=== PATIENT | male | born 1980 | race Caucasian/White ===

== ENCOUNTER 2020-09-05 15:37 | Inpatient (IN) | payer MEDICAID, SELFPAY ==
--- NOTE | 2020-09-05 15:45 | DI.RAD_ITS ---
EXAM: XR ANKLE LT COMPLETE CLINICAL HISTORY: LLE cellulitis and Injury, R/O fracture SQ gas TECHNIQUE: COMPARISON: No exams were available for comparison FINDINGS: Three views were obtained. There are mild degenerative changes of the joints of the ankle. The ankl e mortise is well maintained. There is no evidence of acute fracture. No gas is identified in the s oft tissues although there is mild diffuse soft tissue swelling. IMPRESSION: RADIATION DOSE DELIVERED: Total DLP
[2020-09-05 15:48] VITALS: BP 151/77; PULSE 95; RESP 17; TEMP 37.4; O2SAT 100
--- NOTE | 2020-09-05 15:54 | ED.GENADUL_ITS ---
Discharge Plan Discharge Details Chief Complaint: Orthopedic Admit Date/Time: 09/05/20 19:11 Admit Provider: Amanda Cerda Attending Provider: Amanda Cerda Primary Care Provider: Zuly Mckinnon ED Provider: Dotty Wylie Discharge Data Discharge Date/Time-TO BE ENTERED AT DEPARTURE: 09/05/20 19:55 Medical Decision Making <Bren Wilson - Last Filed: 09/06/20 17:37> At this time work-up ordered including CBC, CMP, blood cultures x2, lactate, x- ray of the ankle to rule out fracture or subcutaneous IV clindamycin. I did discuss imaging and possibility for admission he verbalizes understanding at this time. Care is to be handed off to oncoming provider ANIYA Peterson pending imaging and labs and possible admission. Last Tdap was December 2011. Patient was hemodynamically stable and work-up is pending at the time of this dictation. <ANIYA Peterson - Last Filed: 09/05/20 20:40> This patient was signed out to me by Bren Mcclendon, nurse practitioner pending diagnostic blood work Patient meets sepsis criteria with significant cellulitis to his left lower extremity with a history of IV drug abuse He is started on clindamycin initially by my colleague, at the request of Dr. Cerda, hospitalist he was transitioned to ceftriaxone and vancomycin He will warrant admission to the hospital is agreeable to being admitted at this time Stable at time of admission X-ray of ankle does not show evidence soft tissue gas, I was asked by hospitalist to also order tib-fib, and this also does not show evidence of fracture, foreign body, or any obvious subcutaneous gas No crepitus on palpation, distal pulses intact HPI <Bren Wilson - Last Filed: 09/06/20 17:37> General Mode of arrival: wheelchair . Date/Time Provider Initiated Documentation: 09/05/20 15:45 . Limitations to Documentation: no limitations . Information obtained by: patient . HPI Narrative: 40-year-old male presents to the ER with chief complaint of left ankle injury and pain. Patient [place] when he got his foot caught on some rebar and tripped and fell falling forward. He states that he noticed pain getting worse today and redness getting worse today. On initial exam his ankle and lower extremity including the foot is 2+ pitting edema, warm to the touch, erythemic and appearing to be cellulitic. Patient is unsure of fever or chills. He denies any groin pain or popliteal knee. Erythema extends up to mid calf and go. He is unable to move his he does have a past medical history of depression anxiety, ADHD opioid dependent and mood disorder. He does take methadone daily and reports being noncompliant with Wellbutrin. No other medications prior to arrival Related Data Home Medications Medication Instructions Recorded Confirmed methadone 130 mg PO DAILY 11/11/17 01/04/19 omeprazole 20 mg capsule,delayed 20 mg PO DAILY PRN 01/04/19 09/06/20 release Allergies Allergy/AdvReac Type Severity Reaction Status Date / Time shellfish derived Allergy Mild Hives Unverified 09/05/20 15:53 Penicillins Allergy Hives Unverified 09/05/20 15:53 General Stated Complaint: Orthopedic AMARILYS: 3 Review of Systems <Brenkalia Copelandton - Last Filed: 09/06/20 17:37> All systems reviewed & are unremarkable except as noted in HPI and below Constitutional Constitutional: Reports as per HPI, Reports body ache(s) and Reports chills Cardiovascular Cardiovascular: Reports system reviewed and no additional complaints, except as documented and Denies chest pain Musculoskeletal Musculoskeletal: Reports as per HPI, Reports abnormal gait, Reports arthralgias, Reports joint swelling, Reports limited range of motion and Reports radiating pain into limb Neurologic Neurologic: Reports abnormal gait [facility] <Bren Wilson - Last Filed: 09/06/20 17:37> Medical History (Updated 09/06/20 @ 15:11 by Luma Motley NP) ADHD (attention deficit hyperactivity disorder) Depression GERD (gastroesophageal reflux disease) HPV (human papilloma virus) infection Mood disorder Opioid dependence Tobacco abuse Surgical History (Updated 09/06/20 @ 00:19 by Amanda Cerda MD) No pertinent past surgical history Family History (Updated 09/06/20 @ 00:20 by Amanda Cerda MD) Mother Colon cancer Social History (Updated 09/06/20 @ 00:23 by Amanda Cerda MD) Smoking/Tobacco Use Status: Current every day Tobacco Type: cigarettes Smoking packs per day: 1 Smoking cigarettes per day: 20.0 Years smoked: 25 Smoking pack- years: 25.00 Counseling given: provider counseling, support medications and counseling >3 minutes Smoking risk assessment performed?: Yes Alcohol Intake: current Alcohol type: other Drug use: Daily Substance use type: marijuana, crack/cocaine, amphetamines, tranquilizers, IV drugs and prescription drug Counseling given: Yes Counseling provided: provider counseling Do you feel safe in your relationship?: Yes Exam <Bren Wilson [facility] Filed: 09/06/20 17:37> Const General: comfortable and ill appearing Nutritional Appearance: thin Orientation: alert, awake and oriented x3 Chest Chest: normal inspection of the chest, no crepitus and no tenderness Resp Effort & Inspection: normal respiratory effort, able to speak in complete sentences, no cough and no respiratory distress Auscultation: clear to auscultation bilaterally Cardio Rate: regular rate Heart Sounds: S1 normal and S2 normal Extrem Left lower extremity: ankle Details: tenderness, swelling, pitting edema, abnormal ROM and warmth and foot Details: tenderness, warmth, edema and ecchymosis Upper/lower leg/hip images: 1. Erythema warmth edema Course <[facility] Filed: 09/06/20 17:37> Vital Signs Vital signs: Vital Signs Temperature 37.4 C 09/05/20 15:48 Pulse 95 H 09/05/20 15:48 Respiratory Rate 17 09/05/20 15:48 Blood Pressure 151/77 H 09/05/20 15:48 Pulse Oximetry 100 09/05/20 15:48 Temperature 37.4 C 09/05/20 15:48 Temperature Source Temporal Artery Scan 09/05/20 15:48 Pulse 95 H 09/05/20 15:48 Respiratory Rate 17 09/05/20 15:48 Respiratory Effort 09/05/20 15:51 Blood Pressure 151/77 H 09/05/20 15:48 Pulse Oximetry 100 09/05/20 15:48 Oxygen Delivery Method Room Air 09/05/20 15:48 Oxygen Flow Rate 0 09/05/20 15:48 Pain Level 7 09/05/20 15:48 Lab/Test Results Lab/Test Results: 09/05/20 15:50 Blood Blood Culture - Pending 09/05/20 15:50 Blood Blood Culture - Pending
[2020-09-05] MEDS: Normal Saline 1,000 ML 1000 ML IV (17:02)
--- NOTE | 2020-09-05 17:04 | NUR.NOTE ---
difficult IV start Nursing Note:
[2020-09-05 17:26] LABS: Absolute Basophil Count 0.03 10^3/uL (0.0-0.2); Absolute Monocyte Count 1.33 10^3/uL (0.1-0.8); Basophils % 0.2; Eosinophils % 1.9; HCT 37.1 % (40.0-50.0); HGB 12.5 g/dL (13.5-17.5); Immature Grans % 0.7; Lactate 1.9 mmol/L (0.6-1.4); Lymphocytes % 7.3; MCH 29.1 pg (27.0-33.0); MCHC 33.7 % (32.0-36.0); MCV 86.5 fL (80-95); MPV 10.9 fL (8.0-11.0); Monocytes % 9.2; Neutrophils % 80.7; Nucleated RBC 0 %; Platelet Count 217 10^3/uL (130-400); RBC 4.29 10^6/uL (4.36-5.78); RDW 12.4 % (11.8-14.1); RDW-SD 39.7 fL; WBC 14.43 10^3/uL (4.4-10.8)
[2020-09-05] MEDS: CLINDAMYCIN 600 MG/50 ML BAG 100 MG IVPB (17:27)
[2020-09-05 17:28] LABS: Absolute Eosinophil Count 0.27 10^3/uL (0.0-0.7); Absolute Lymphocyte Count 1.05 10^3/uL (1.2-3.4); Absolute Neutrophil Count 11.65 10^3/uL (1.2-6.7)
[2020-09-05 17:42] LABS: ALT 36 U/L (16-63); AST 34 U/L (15-37); Alkaline Phosphatase 92 U/L (46-116); BUN 9 mg/dL (7-18); Bilirubin, Total 0.5 mg/dL (0.2-1.0); Calcium 9.4 mg/dL (8.5-10.1); Chloride 99 mmol/L (98-107); Glucose 110 mg/dL (74-106); Magnesium 2.2 mg/dL (1.8-2.4); Potassium 3.4 mmol/L (3.5-5.1); Sodium 139 mmol/L (136-145); Total Protein 7.6 g/dL (6.4-8.2)
--- NOTE | 2020-09-05 18:15 | DI.VRAD_ITS ---
PROCEDURE INFORMATION: Exam: XR Left Ankle Exam date and time: 09/05/2020 6:04 PM Age: 40 years old Clinical indication: Injury or trauma; Other: Tangked in eyad wire; Blunt trauma; Ankle; Left TECHNIQUE: Imaging protocol: XR Left ankle. Views: 3 or more views. COMPARISON: No relevant prior studies available. FINDINGS: Bones/joints: There is posterior calcaneal enthesopathy. Soft tissues: There is mild lateral ankle swelling. IMPRESSION: 1. No acute fracture or dislocation. 2. Lateral ankle swelling, probable sprain. Dictated and Authenticated by: Jaron Blackwell MD. Ordering:GATO Correia MD
[2020-09-05 18:41] LABS: C-Reactive Protein > 25.00 mg/dL (0.0-0.3)
--- NOTE | 2020-09-05 18:45 | DI.RAD_ITS ---
EXAM: XR TIB/FIB LT CLINICAL HISTORY: cellulitis TECHNIQUE: COMPARISON: No exams were available for comparison FINDINGS: Two views were obtained. There is no evidence of acute fracture or dislocation. No gross erosive or destructive lesion seen. Please note that the distal most aspect of the tibia and fibula are not in cluded on the AP view. IMPRESSION: RADIATION DOSE DELIVERED: Total DLP
--- NOTE | 2020-09-05 19:24 | DI.VRAD_ITS ---
PROCEDURE INFORMATION: Exam: XR Left Tibia and Fibula Exam date and time: 09/05/2020 7:06 PM Age: 40 years old Clinical indication: Cellulitis; Lower leg; Left TECHNIQUE: Imaging protocol: XR Left tibia and fibula. Views: 2 views. COMPARISON: No relevant prior studies available. FINDINGS: Bones/joints: There is no acute fracture or dislocation. No periosteal reaction or erosive changes in the bones. Soft tissues: There is soft tissue swelling suspected in the lower leg. IMPRESSION: 1. No acute fracture or dislocation. 2. Mild soft tissue swelling in the lower leg. No abnormal periosteal reaction or erosive changes in tibia and fibula to suggest osteomyelitis. Dictated and Authenticated by: Jaron Blackwell MD. Ordering:TONYA Storm MD
[2020-09-05 20:05] VITALS: BP 128/79; PULSE 71; RESP 12; TEMP 37.3; O2SAT 99
[2020-09-05 20:10] LABS: Source Nasal/Nares
[2020-09-05 20:11] LABS: Procalcitonin 0.6 ng/mL
[2020-09-05 20:21] LABS: *AMPHETAMINES SCREEN URINE Positive (Negative); *BARBITURATES SCREEN URINE Negative (Negative); *BENZODIAZEPINES SCREEN URINE Negative (Negative); Cannabinoids THC Positive (Negative); Cocaine Screen,Urine Positive (Negative); METHADONE URINE SCREEN Positive (Negative); OPIATES URINE SCREEN Negative (Negative)
[2020-09-05 20:22] LABS: Tricyclic Antidepressants Negative (Negative)
[2020-09-05] MEDS: Acetaminophen 325 MG TAB 650 MG PO (21:07)
[2020-09-05] MEDS: Enoxaparin 40 MG/0.4 ML SYR SC (21:09)
[2020-09-05] MEDS: Potassium Chloride 20 MEQ TABCR 40 MEQ PO (21:09)
[2020-09-05] MEDS: Normal Saline Flush 10 ML SYR IVP ×2 (21:10→22:08)
[2020-09-05] MEDS: Normal Saline 1,000 ML 150 ML IV (22:10)
[2020-09-05] MEDS: cefTRIAXone 2 GM/50 ML BAG IVPB (22:53)
[2020-09-05 23:03] LABS: COVID-19 PCR Negative (Negative)
[2020-09-05 23:37] VITALS: BP 123/71; PULSE 71; RESP 18; TEMP 37; O2SAT 99
--- NOTE | 2020-09-05 23:43 | HPE_ITS ---
Date of service: 09/05/20 Time of Service: 23:44 Assessment and Plan Assessment and plan (1) Cellulitis of left leg: Status: Acute Assessment and plan: Specifically ankle. Await blood culture results. Continue vancomycn/zosyn empirically. Trend CRP/procalcitonin. Consider CT/MRI to r/o OM. No evidence of OM on XR, but this would be a late finding on XR. (The patient may have metal debris in one of his eyes per my chart review if MRI is being considered). IVF. Low threshold to consult orthopedics. (2) Hypokalemia: Status: Acute Assessment and plan: Replete and recheck in am. (3) Opioid dependence: Status: Chronic Assessment and plan: Pharmacy to verify dosing of methadone which we will continue while the patient is an in-patient. (4) IVDU (intravenous drug user): Status: Chronic Assessment and plan: Monitor for signs of w/d. Check HIV/Hepatitis serologies. (5) Polysubstance abuse: Status: Chronic Assessment and plan: As above Monitor on CIWA for alcohol dependence and provide vitamins. Provide nicotrol for nicotine dependence. (6) DVT prophylaxis: Status: Acute Assessment and plan: Sc lovenox (7) Discharge planning issues: Status: Acute Assessment and plan: Full code History of Present Illness History of Present Illness Chief Complaint: Left leg redness and swelling Narrative: Mr Kilpatrick is a 40 year old male with PMHx of IV drug use/multisubstance abuse, opioid dependence on methadone therapy, as well as h/o ADHD, anxiety, depression, and tobacco abuse, who presented to [facility] ED c/o L ankle pain after [place] by the river [place] days ago. The patient states that he had tripped on rebar and had fallen and that the ankle was exposed to river water. The patient also reports drug injection in that region over a week ago, but states it did not become red or swollen until the injury by the alexandro Appota. He denies fevers, chills, runny nose, sore throat, chest pain, shortness of breath, nausea, diarhea. He has a chronic smokers cough. He drinks 1-2 drinks/daily (twisted tea). In the ED, the patient was afebrile, had leucocytosis of 14 and had erythema to the degree that it was felt that he warranted inpatient admission. He was initiated on empiric clindamycin, then switched to vancomycin/zosyn due to h/o IVD use. Hospitalist admission was requested Review of Systems Narrative: The patient states he last drank today. Denies h/o w/d from EtOH. Denies seizures. States he smokes cocaine. About 1 week ago cocaine was injected into L ankle All systems reviewed & are unremarkable except as noted in HPI and below PFSH Medical History (Updated 09/06/20 @ 00:19 by Amanda Cerda MD) ADHD (attention deficit hyperactivity disorder) Depression GERD (gastroesophageal reflux disease) HPV (human papilloma virus) infection Mood disorder Opioid dependence Tobacco abuse Surgical History (Updated 09/06/20 @ 00:19 by Amanda Cerda MD) No pertinent past surgical history Family History (Updated 09/06/20 @ 00:20 by Amanda Cerda MD) Mother Colon cancer Social History (Updated 09/06/20 @ 00:23 by Amanda Cerda MD) Smoking/Tobacco Use Status: Current every day Tobacco Type: cigarettes Smoking packs per day: 1 Smoking cigarettes per day: 20.0 Years smoked: 25 Smoking pack- years: 25.00 Counseling given: provider counseling, support medications and counseling >3 minutes Smoking risk assessment performed?: Yes Alcohol Intake: current Alcohol type: other Drug use: Daily Substance use type: marijuana, crack/cocaine, amphetamines, tranquilizers, IV drugs and prescription drug Counseling given: Yes Counseling provided: provider counseling Do you feel safe in your relationship?: Yes Meds Allergies and Home Medications Allergies Allergy/AdvReac Type Severity Reaction Status Date / Time shellfish derived Allergy Mild Hives Unverified 09/05/20 15:53 Penicillins Allergy Hives Unverified 09/05/20 15:53 Home Medications Medication Instructions Recorded Confirmed Type methadone 130 mg PO DAILY 11/11/17 01/04/19 History omeprazole 20 mg capsule,delayed 20 mg PO DAILY 01/04/19 01/04/19 History release Exam Narrative Exam Narrative: General: Pleasant unkempt middle-aged male, cooperative, calm, does not appear to be withdrawing from any substance. Neurological: A&Ox3, no focal deficits Psychiatric: Appropriate speech pattern/content Skin: L ankle erythematous and swollen. No open wounds/abrasions. HEENT: Atraumatic, normocephalic, EOMI, MMM, clear oropharynx, no submandibular or cervical lymphadenopathy, no goiter or JVD Cardiovascular: RRR, no m/r/g Lungs: CTAB Gastrointestinal: soft, nontender, nondistended Genitourinary: deferred Extremities: No edema RLE; L ankle is swollen, erythematous, warm to touch. No areas of induration to suggest abscess. Results Imaging Additional studies: XR ankle L: 1. No acute fracture or dislocation. 2. Lateral ankle swelling, probable sprain. XR tib/fib L: 1. No acute fracture or dislocation. 2. Mild soft tissue swelling in the lower leg. No abnormal periosteal reaction or erosive changes in tibia and fibula to suggest osteomyelitis. Labs Result diagrams: 09/05/20 17:10 09/05/20 17:10 Labs: Laboratory Results - last 24 hr 09/05/20 09/05/20 09/05/20 17:10 17:10 17:10 WBC 14.43 H RBC 4.29 L Hgb 12.5 L Hct 37.1 L MCV 86.5 MCH 29.1 MCHC 33.7 RDW 12.4 Plt Count 217 MPV 10.9 Immature Gran % 0.7 Neutrophils % 80.7 Lymphocytes % 7.3 Monocytes % 9.2 Eosinophils % 1.9 Basophils % 0.2 Nucleated RBC % 0 Absolute Neutrophils 11.65 H Absolute Lymphocytes 1.05 L Absolute Monocytes 1.33 H Absolute Eosinophils 0.27 Absolute Basophils 0.03 VBG Lactate 1.9 H Sodium 139 Potassium 3.4 L Chloride 99 Carbon Dioxide 34.0 H Anion Gap 6.0 BUN 9 Creatinine 1.0 Estimated GFR/1.73 m2 >= 60.00 Glucose 110 H Calcium 9.4 Magnesium 2.2 Total Bilirubin 0.5 AST 34 ALT 36 Alkaline Phosphatase 92 C-Reactive Protein Total Protein 7.6 Albumin 3.0 L Procalcitonin 0.6 Urine Opiates Screen Urine Methadone Screen Ur Barbiturates Screen Ur Tricyclics Screen Ur Amphetamines Screen U Benzodiazepines Scrn Urine Cocaine Screen Ur THC Screen COVID-19 Source SARS-CoV-2 (PCR) 09/05/20 09/05/20 09/05/20 17:10 19:50 19:50 WBC RBC Hgb Hct MCV MCH MCHC RDW Plt Count MPV Immature Gran % Neutrophils % Lymphocytes % Monocytes % Eosinophils % Basophils % Nucleated RBC % Absolute Neutrophils Absolute Lymphocytes Absolute Monocytes Absolute Eosinophils Absolute Basophils VBG Lactate Sodium Potassium Chloride Carbon Dioxide Anion Gap BUN Creatinine Estimated GFR/1.73 m2 Glucose Calcium Magnesium Total Bilirubin AST ALT Alkaline Phosphatase C-Reactive Protein > 25.00 H Total Protein Albumin Procalcitonin Urine Opiates Screen Negative Urine Methadone Screen Positive A Ur Barbiturates Screen Negative Ur Tricyclics Screen Negative Ur Amphetamines Screen Positive A U Benzodiazepines Scrn Negative Urine Cocaine Screen Positive A Ur THC Screen Positive A COVID-19 Source Nasal/nares SARS-CoV-2 (PCR) Negative Last Vital Signs Temp 37 C 09/05/20 23:37 Pulse 71 09/05/20 23:37 Resp 18 09/05/20 23:37 BP 123/71 09/05/20 23:37 Pulse Ox 99 09/05/20 23:37 COVID-19 Screening Have you, or household traveled for leisure in last 14 days?: No Had IN PERSON contact w/suspected or confirmed C-19 person: No
[2020-09-05] MEDS: VANCOMYCIN 2,000 MG in Normal Saline 500 ML 250 MG IVPB (23:58)
[2020-09-06] MEDS: THIAMINE 100 MG in Normal Saline 100 ML 200 MG IVPB (02:29)
[2020-09-06 04:05] VITALS: BP 117/71; PULSE 72; RESP 16; TEMP 37; O2SAT 99
[2020-09-06 07:24] VITALS: BP 105/63; PULSE 87; RESP 18; TEMP 37.9; O2SAT 98
[2020-09-06 07:48] LABS: Lactate 1.5 mmol/L (0.6-1.4)
[2020-09-06] MEDS: Multivitamin TAB 1 TAB PO (07:49)
[2020-09-06] MEDS: Thiamine 100 MG TAB PO (07:49)
[2020-09-06] MEDS: Acetaminophen 325 MG TAB 650 MG PO ×2 (07:49→23:58)
[2020-09-06] MEDS: Folic Acid 1 MG TAB PO (07:49)
[2020-09-06] MEDS: Normal Saline 1,000 ML 150 ML IV (07:51)
[2020-09-06 08:05] LABS: Abs Immature Grans 0.04 10^3/uL (0.0-0.06); Absolute Basophil Count 0.03 10^3/uL (0.0-0.2); Absolute Eosinophil Count 0.41 10^3/uL (0.0-0.7); Absolute Monocyte Count 1.04 10^3/uL (0.1-0.8); Basophils % 0.3; Eosinophils % 3.7; HGB 11.7 g/dL (13.5-17.5); Immature Grans % 0.4; Lymphocytes % 9.8; MCH 28.2 pg (27.0-33.0); MCHC 32.5 % (32.0-36.0); MCV 86.7 fL (80-95); MPV 11.4 fL (8.0-11.0); Monocytes % 9.3; Neutrophils % 76.5; Nucleated RBC 0 %; Platelet Count 181 10^3/uL (130-400); RBC 4.15 10^6/uL (4.36-5.78); RDW 12.8 % (11.8-14.1); RDW-SD 40.4 fL; WBC 11.18 10^3/uL (4.4-10.8)
[2020-09-06 08:08] LABS: Anion Gap 9.1 mmol/L (3-11); BUN 6 mg/dL (7-18); CO2 26.9 mmol/L (21.0-32.0); CREATININE 0.8 mg/dL (0.70-1.30); Calcium 8.6 mg/dL (8.5-10.1); Chloride 103 mmol/L (98-107); Creatine Kinase 152 U/L (39-308); Glucose 112 mg/dL (74-106); Potassium 3.8 mmol/L (3.5-5.1); Sodium 139 mmol/L (136-145)
[2020-09-06 08:13] LABS: Absolute Neutrophil Count 8.55 10^3/uL (1.2-6.7)
[2020-09-06 08:23] LABS: C-Reactive Protein > 25.00 mg/dL (0.0-0.3)
[2020-09-06] MEDS: Methadone Liquid 10 MG/ML 130 MG PO (09:28)
[2020-09-06] MEDS: VANCOMYCIN/WATER (PEG) 1.5 GM/300 ML BAG IV ×2 (10:22→18:00)
--- NOTE | 2020-09-06 11:04 | PDOC.CMIN ---
- If Service Date Differs Date of service: 09/06/20 Time of Service: 11:04 Care Management Initial Assess REASON FOR HOSPITALIZATION:: Cellulitis of left leg PAST MEDICAL HISTORY/PAST SURGICAL HISTORY:: Medical History (Updated 09/06/20 @ 00:19 by Amanda Cerda MD). ADHD (attention deficit hyperactivity disorder). Depression. GERD (gastroesophageal reflux disease). HPV (human papilloma virus) infection. Mood disorder. Opioid dependence. Tobacco abuse. Surgical History (Updated 09/06/20 @ 00:19 by Amanda Cerda MD). No pertinent past surgical history PREVIOUS FUNCTIONAL STATUS/SOCIAL/FAMILY SUPPORTS:: Ritesh lives in a condominium with his brother in [place], [place]. He and his brother own the condo; it was left to them by their mother. Ritesh is independent with care and activities and does not receive any services, although he does attend [facility] for substance use treatment. Mike is not currently working and does receive unemployment benefits. CURRENT FUNCTIONAL STATUS:: Ritesh was sitting up in bed when CM met with him. He was pleasant and engaged readily with CM, answering questions freely. Ritesh stated that he does not feel that his leg is any better since coming to the hospital but understands that it will take time. He talked a bit about his living arrrangements and shared that his current girlfriend has been staying with him for a while. He describes their relationship as not very healthy and temporary. Heinformed Cm that he hopes not to be in the hospital too long, but did bring his Ipad to help to occupy his time. ADVANCE DIRECTIVES:: none on file - provided with a copy of the [place] AD forms Has patient been provided with info about the portal/API?: Yes Did the patient sign up for the portal?: No CODE STATUS:: Full Code INSURANCE COVERAGE / FINANCIAL ISSUES:: Medicaid CURRENT HOME/COMMUNITY SERVICES/EQUIPMENT:: Attends [facility] PRIMARY CARE PHYSICIAN:: Zuly Mckinnon POTENTIAL DISCHARGE NEEDS:: Follow up with PCP and plan of care PATIENT/FAMILY EDUCATION NEEDS:: Review of discharge instructions, medications, activity, limitations, Ask Me Three, follow up appointments TRANSPORTATION:: via private vehicle with family/friend PLAN:: Ritesh will gunnerley be discharged home with no new services. He will follow up with his PCP and plan of care and transport with family. CM will continue to support Ritesh and his discharge planning needs.
[2020-09-06 11:37] VITALS: BP 129/66; PULSE 69; RESP 20; TEMP 36.8; O2SAT 97
--- NOTE | 2020-09-06 15:03 | W.PM.PROGNOT ---
Date of Service Date of service: 09/06/20 Time of Service: 10:30 Assessment and Plan Assessment and plan (1) Cellulitis of left leg: Start date: 09/06/20 Start time: 10:30 Status: Acute Assessment and plan: L ankle . Blood cultures pending Continue vancomycn/zosyn empirically until blood cultures result CRP greater than 25, procal 0.6 Xray results : Mild soft tissue swelling in the lower leg. No abnormal periosteal reaction or erosive changes in tibia and fibula to suggest osteomyelitis. at this time CT no warranted, if does not approve consider CT D/c IVF (2) Hypokalemia: Start date: 09/06/20 Start time: 10:30 Status: Resolved Assessment and plan: Resolved with supplementation (3) Opioid dependence: Start date: 09/06/20 Start time: 15:11 Status: Chronic Assessment and plan: Pharmacy to verify dosing of methadone which we will continue while the patient is an in-patient. Unable to verify until Monday (4) IVDU (intravenous drug user): Start date: 09/06/20 Start time: 15:12 Status: Chronic Assessment and plan: Monitor for signs of w/d. no signs at this time Check HIV/Hepatitis serologies. UDS positive with multiple substances (5) Polysubstance abuse: Start date: 09/06/20 Start time: 15:12 Status: Chronic Assessment and plan: As above Monitor on CIWA for alcohol dependence and provide vitamins. Provide nicotrol for nicotine dependence. (6) DVT prophylaxis: Start date: 09/06/20 Start time: 15:12 Status: Acute Assessment and plan: Sc lovenox (7) Discharge planning issues: Start date: 09/06/20 Start time: 15:12 Status: Acute Assessment and plan: Full code above case discussed with Dr. George Subjective Subjective Patient reports: no new complaints Interval history since last seen: No improvement per patient. No markings on cellulitis. Markings made by this provider. However it has not even been 24 hours on antbx. He denies Pain. Will continue to monitor. Exam Narrative Exam Narrative: General: Pleasant unkempt middle-aged male, cooperative, calm, does not appear to be withdrawing from any substance laying in bed. Neurological: A&Ox3, no focal deficits Psychiatric: Appropriate speech pattern/content Skin: L ankle erythematous and swollen. No open wounds/abrasions. small pen point scab to inner ankle HEENT: Atraumatic, normocephalic, EOMI, MMM, clear oropharynx, no submandibular or cervical lymphadenopathy, no goiter or JVD Cardiovascular: RRR, no m/r/g Lungs: CTAB Gastrointestinal: soft, nontender, nondistended, BS x 4 Extremities: No edema RLE; L ankle is swollen, erythematous, warm to touch. No areas of induration to suggest abscess. Objective Last Vital Signs Temp 36.8 C 09/06/20 11:37 Pulse 69 09/06/20 11:37 Resp 20 09/06/20 11:37 BP 129/66 09/06/20 11:37 Pulse Ox 97 09/06/20 11:37 Laboratory Results - last 24 hr 09/05/20 09/05/20 09/05/20 17:10 17:10 17:10 WBC 14.43 H RBC 4.29 L Hgb 12.5 L Hct 37.1 L MCV 86.5 MCH 29.1 MCHC 33.7 RDW 12.4 Plt Count 217 MPV 10.9 Immature Gran % 0.7 Neutrophils % 80.7 Lymphocytes % 7.3 Monocytes % 9.2 Eosinophils % 1.9 Basophils % 0.2 Nucleated RBC % 0 Absolute Neutrophils 11.65 H Absolute Lymphocytes 1.05 L Absolute Monocytes 1.33 H Absolute Eosinophils 0.27 Absolute Basophils 0.03 VBG Lactate 1.9 H Sodium 139 Potassium 3.4 L Chloride 99 Carbon Dioxide 34.0 H Anion Gap 6.0 BUN 9 Creatinine 1.0 Estimated GFR/1.73 m2 >= 60.00 Glucose 110 H Calcium 9.4 Magnesium 2.2 Total Bilirubin 0.5 AST 34 ALT 36 Alkaline Phosphatase 92 Creatine Kinase C-Reactive Protein Total Protein 7.6 Albumin 3.0 L Procalcitonin 0.6 Urine Opiates Screen Urine Methadone Screen Ur Barbiturates Screen Ur Tricyclics Screen Ur Amphetamines Screen U Benzodiazepines Scrn Urine Cocaine Screen Ur THC Screen COVID-19 Source SARS-CoV-2 (PCR) 09/05/20 09/05/20 09/05/20 17:10 19:50 19:50 WBC RBC Hgb Hct MCV MCH MCHC RDW Plt Count MPV Immature Gran % Neutrophils % Lymphocytes % Monocytes % Eosinophils % Basophils % Nucleated RBC % Absolute Neutrophils Absolute Lymphocytes Absolute Monocytes Absolute Eosinophils Absolute Basophils VBG Lactate Sodium Potassium Chloride Carbon Dioxide Anion Gap BUN Creatinine Estimated GFR/1.73 m2 Glucose Calcium Magnesium Total Bilirubin AST ALT Alkaline Phosphatase Creatine Kinase C-Reactive Protein > 25.00 H Total Protein Albumin Procalcitonin Urine Opiates Screen Negative Urine Methadone Screen Positive A Ur Barbiturates Screen Negative Ur Tricyclics Screen Negative Ur Amphetamines Screen Positive A U Benzodiazepines Scrn Negative Urine Cocaine Screen Positive A Ur THC Screen Positive A COVID-19 Source Nasal/nares SARS-CoV-2 (PCR) Negative 09/06/20 09/06/20 09/06/20 07:41 07:41 07:41 WBC 11.18 H RBC 4.15 L Hgb 11.7 L Hct 36.0 L MCV 86.7 MCH 28.2 MCHC 32.5 RDW 12.8 Plt Count 181 MPV 11.4 H Immature Gran % 0.4 Neutrophils % 76.5 Lymphocytes % 9.8 Monocytes % 9.3 Eosinophils % 3.7 Basophils % 0.3 Nucleated RBC % 0 Absolute Neutrophils 8.55 H Absolute Lymphocytes 1.10 L Absolute Monocytes 1.04 H Absolute Eosinophils 0.41 Absolute Basophils 0.03 VBG Lactate 1.5 H Sodium 139 Potassium 3.8 Chloride 103 Carbon Dioxide 26.9 Anion Gap 9.1 BUN 6 L Creatinine 0.8 Estimated GFR/1.73 m2 >= 60.00 Glucose 112 H Calcium 8.6 Magnesium 2.0 Total Bilirubin AST ALT Alkaline Phosphatase Creatine Kinase 152 C-Reactive Protein > 25.00 H Total Protein Albumin Procalcitonin Urine Opiates Screen Urine Methadone Screen Ur Barbiturates Screen Ur Tricyclics Screen Ur Amphetamines Screen U Benzodiazepines Scrn Urine Cocaine Screen Ur THC Screen COVID-19 Source SARS-CoV-2 (PCR)
[2020-09-06 15:32] VITALS: BP 124/79; PULSE 79; RESP 18; TEMP 37.5; O2SAT 97
[2020-09-06] MEDS: Normal Saline 500 ML 30 ML IV (18:01)
[2020-09-06] MEDS: Enoxaparin 40 MG/0.4 ML SYR SC (19:45)
[2020-09-06 20:03] VITALS: BP 134/74; PULSE 69; RESP 20; TEMP 36.7; O2SAT 97
[2020-09-06] MEDS: cefTRIAXone 2 GM/50 ML BAG IVPB (21:54)
[2020-09-06 23:58] VITALS: TEMP 37.5
[2020-09-07] VITALS (8 sets, daily range): BP systolic 110–129; BP diastolic 70–82; PULSE 64–77; RESP 16–18; TEMP 36.3–38.2; O2SAT 94–100
[2020-09-07] MEDS: VANCOMYCIN/WATER (PEG) 1.5 GM/300 ML BAG IV ×3 (02:06→18:26)
[2020-09-07] MEDS: Folic Acid 1 MG TAB PO (08:23)
[2020-09-07] MEDS: Multivitamin TAB 1 TAB PO (08:23)
[2020-09-07] MEDS: Methadone Liquid 10 MG/ML 135 MG PO (08:24)
[2020-09-07] MEDS: Thiamine 100 MG TAB PO (08:24)
[2020-09-07 09:37] LABS: Vancomycin, Trough 14.7 ug/mL (10.0-20.0)
[2020-09-07 09:47] LABS: Abs Immature Grans 0.08 10^3/uL (0.0-0.06); Absolute Basophil Count 0.03 10^3/uL (0.0-0.2); Absolute Eosinophil Count 0.38 10^3/uL (0.0-0.7); Absolute Lymphocyte Count 0.98 10^3/uL (1.2-3.4); Absolute Monocyte Count 0.67 10^3/uL (0.1-0.8); Absolute Neutrophil Count 8.38 10^3/uL (1.2-6.7); Basophils % 0.3; Eosinophils % 3.6; HCT 34.4 % (40.0-50.0); HGB 11.1 g/dL (13.5-17.5); Immature Grans % 0.8; Lymphocytes % 9.3; MCH 28.5 pg (27.0-33.0); MCHC 32.3 % (32.0-36.0); MCV 88.4 fL (80-95); MPV 10.6 fL (8.0-11.0); Monocytes % 6.4; Neutrophils % 79.6; Nucleated RBC 0 %; Platelet Count 230 10^3/uL (130-400); RBC 3.89 10^6/uL (4.36-5.78); RDW 13.1 % (11.8-14.1); RDW-SD 42.5 fL; WBC 10.52 10^3/uL (4.4-10.8)
--- NOTE | 2020-09-07 10:32 | W.NUTRFU ---
Date of service: 09/07/20 Time of Service: 10:32 Nutritional Follow up NOTE: 40 year old male admitted with cellulitis of left leg with long standing hx of poly substance abuse. Supplemented with MVI, thiamin and folic acid. Currently meeting nutrient and fluid needs by regular diet. Not at nutritional risk at this time. Time Spent in Nutritional Counseling and Treatment: 0
--- NOTE | 2020-09-07 10:42 | CMPROGNOTE_ITS ---
Care Management Progress Note S/O: Carl continues to be treated empirically while awaiting culture results and [facility] ID consult. CM continues to follow. A: 40 year old male admitted to [facility] 09/05/20 for Sepsis due to LLE cellulitis in setting of IVD use. P: Ritesh will likely be discharged home with no new services, anticipate he will need a last dose letter for [facility] resumption. He will follow up with his PCP and plan of care and transport with family. CM will continue to support Ritesh and his discharge planning needs.
[2020-09-07 10:59] LABS: HIV-1/2 Ag & Ab Screen Negative (Negative)
[2020-09-07 11:20] LABS: HBs Antibody, Qual Negative (See Note); HBs Antibody, Quant <3.1 mIU/mL (See Note); Hepatitis B Core Antibody Positive (Negative); Hepatitis B surface Ag Negative (Negative); Hepatitis C Ab w Rflx HCV PCR Reactive (Negative)
--- NOTE | 2020-09-07 11:31 | W.PM.PROGNOT ---
Date of Service Date of service: 09/07/20 Time of Service: 11:37 Assessment and Plan Assessment and plan (1) Cellulitis of left leg: Start date: 09/07/20 Start time: 11:41 Status: Acute Assessment and plan: L ankle . Blood cultures pending Continue vancomycn/zosyn empirically until blood cultures result CRP greater than 25, procal 0.6 Xray results : Mild soft tissue swelling in the lower leg. No abnormal periosteal reaction or erosive changes in tibia and fibula to suggest osteomyelitis. at this time CT no warranted, if does not approve consider CT D/c IVF (2) Opioid dependence: Start date: 09/07/20 Start time: 11:41 Status: Chronic Assessment and plan: Methadone verified he takes 135 daily ordered and will continue (3) IVDU (intravenous drug user): Start date: 09/07/20 Start time: 11:42 Status: Chronic Assessment and plan: He states he has never gone through withdrawal for opioids continue methadone as above CIWA protocol discontinued, he only drinks 1-2 beers a couple times a week (4) Polysubstance abuse: Start date: 09/07/20 Start time: 11:43 Status: Chronic Assessment and plan: As above Provide nicotrol for nicotine dependence. (5) DVT prophylaxis: Start date: 09/07/20 Start time: 11:43 Status: Acute Assessment and plan: Sc lovenox (6) Discharge planning issues: Start date: 09/07/20 Start time: 11:43 Status: Acute Assessment and plan: Full code above case discussed with Dr. George Subjective Subjective Patient reports: no new complaints Interval history since last seen: Erythema improving. CIWA 0 he states he only drinks 1-2 beers a couple days a week and he has never gone through withdrawal from not using drugs, he is also on methadone. Will discontinue Alcohol withdrawal protocol. He denies CP, SOB, N/V/D. Exam Narrative Exam Narrative: General: Pleasant unkempt middle-aged male, cooperative, calm, does not appear to be withdrawing from any substance sitting up in chair. Neurological: A&Ox3, no focal deficits Psychiatric: Appropriate speech pattern/content Skin: L ankle erythematous and swollen though improving, receding from lines on inner aspect of the ankle. No open wounds/abrasions. small pen point scab to inner ankle HEENT: Atraumatic, normocephalic, EOMI, MMM, clear oropharynx, no submandibular or cervical lymphadenopathy, no goiter or JVD Cardiovascular: RRR, no m/r/g Lungs: CTAB Gastrointestinal: soft, nontender, nondistended, BS x 4 Objective Last Vital Signs Temp 37 C 09/07/20 11:25 Pulse 66 09/07/20 11:25 Resp 16 09/07/20 11:25 BP 126/82 09/07/20 11:25 Pulse Ox 97 09/07/20 11:25 Laboratory Results - last 24 hr 09/06/20 09/07/20 09/07/20 08:05 09:00 09:27 WBC 10.52 RBC 3.89 L Hgb 11.1 L Hct 34.4 L MCV 88.4 MCH 28.5 MCHC 32.3 RDW 13.1 Plt Count 230 MPV 10.6 Immature Gran % 0.8 Neutrophils % 79.6 Lymphocytes % 9.3 Monocytes % 6.4 Eosinophils % 3.6 Basophils % 0.3 Nucleated RBC % 0 Absolute Neutrophils 8.38 H Absolute Lymphocytes 0.98 L Absolute Monocytes 0.67 Absolute Eosinophils 0.38 Absolute Basophils 0.03 Vancomycin Trough 14.7 HIV 1&2 Ag/Ab, 4th Gen Negative
--- NOTE | 2020-09-07 14:05 | CHAPLAIN ---
Carl was resting in the recliner when I stopped in. He showed me his foot that is swollen and red. He said he's basically trying to sleep away his time here. I explained my role and offered support.
[2020-09-07] MEDS: Normal Saline 500 ML 30 ML IV (16:05)
[2020-09-07] MEDS: Docusate Sodium 100 MG CAP PO (18:41)
[2020-09-07] MEDS: Enoxaparin 40 MG/0.4 ML SYR SC (19:43)
[2020-09-07] MEDS: cefTRIAXone 2 GM/50 ML BAG IVPB (22:40)
[2020-09-08] MEDS: VANCOMYCIN/WATER (PEG) 1.5 GM/300 ML BAG IV ×2 (02:40→10:10)
[2020-09-08 03:25] VITALS: BP 112/71; PULSE 60; RESP 16; TEMP 37; O2SAT 97
[2020-09-08 07:29] VITALS: BP 118/79; PULSE 62; RESP 16; TEMP 36.7; O2SAT 98
[2020-09-08 07:44] LABS: HCT 35.8 % (40.0-50.0); HGB 11.5 g/dL (13.5-17.5); MCH 28.4 pg (27.0-33.0); MCHC 32.1 % (32.0-36.0); MCV 88.4 fL (80-95); MPV 10.3 fL (8.0-11.0); Platelet Count 287 10^3/uL (130-400); RBC 4.05 10^6/uL (4.36-5.78); RDW 13.1 % (11.8-14.1); RDW-SD 42.9 fL; WBC 10.09 10^3/uL (4.4-10.8)
[2020-09-08] MEDS: Normal Saline Flush 10 ML SYR IVP ×3 (07:47→19:53)
[2020-09-08] MEDS: Methadone Liquid 10 MG/ML 135 MG PO (08:14)
--- NOTE | 2020-09-08 08:43 | W.PM.PROGNOT ---
Date of Service Date of service: 09/08/20 Time of Service: 08:44 Assessment and Plan Assessment and plan (1) Cellulitis of left leg: Status: Acute Assessment and plan: worsening erythema. Blood cultures pending but negative to date Was on vancomycn/zosyn empirically until blood cultures resulted but failing clinically so will change to meropenem day 1. CRP greater than 25, procal 0.6 Xray results : Mild soft tissue swelling in the lower leg. No abnormal periosteal reaction or erosive changes in tibia and fibula to suggest osteomyelitis. at this time CT no warranted, if does not improve consider CT (2) Opioid dependence: Status: Chronic Assessment and plan: Methadone verified he takes 135 mg daily ordered and will continue (3) IVDU (intravenous drug user): Status: Chronic Assessment and plan: He states he has never gone through withdrawal for opioids continue methadone as above CIWA protocol discontinued, he only drinks 1-2 beers a couple times a week (4) Polysubstance abuse: Status: Chronic Assessment and plan: As above Provide nicotrol for nicotine dependence. will add nicotine patch (5) DVT prophylaxis: Status: Acute Assessment and plan: Sc lovenox (6) Discharge planning issues: Status: Acute Assessment and plan: Full code above case discussed with Dr. George Exam Narrative Exam Narrative: General: Pleasant unkempt middle-aged male, cooperative, calm, mildly fidgety/twitchy but in no distress. Neurological: A&Ox3, no focal deficits Psychiatric: Appropriate speech pattern/content Skin: L ankle erythematous and swollen significantly extending proximally beyond the lines marked. No open wounds/abrasions. small pen point scab to inner ankle HEENT: Atraumatic, normocephalic, EOMI, MMM, clear oropharynx, no submandibular or cervical lymphadenopathy, no goiter or JVD Cardiovascular: RRR, no m/r/g Lungs: CTAB Gastrointestinal: soft, nontender, nondistended, BS x 4 Objective Last Vital Signs Temp 36.7 C 09/08/20 07:29 Pulse 62 09/08/20 07:29 Resp 16 09/08/20 07:29 BP 118/79 09/08/20 07:29 Pulse Ox 98 09/08/20 07:29 Laboratory Results - last 24 hr 09/06/20 09/06/20 09/07/20 08:05 08:05 09:00 WBC RBC Hgb Hct MCV MCH MCHC RDW Plt Count MPV Immature Gran % Neutrophils % Lymphocytes % Monocytes % Eosinophils % Basophils % Nucleated RBC % Absolute Neutrophils Absolute Lymphocytes Absolute Monocytes Absolute Eosinophils Absolute Basophils Vancomycin Trough 14.7 Hep Bs Antigen Negative Hep Bs Antibody Negative Hep Bs Antibody, Quant <3.1 Hep B Core Total Ab Positive A Hepatitis C Antibody Reactive A HIV 1&2 Ag/Ab, 4th Gen Negative 09/07/20 09/08/20 09:27 07:35 WBC 10.52 10.09 RBC 3.89 L 4.05 L Hgb 11.1 L 11.5 L Hct 34.4 L 35.8 L MCV 88.4 88.4 MCH 28.5 28.4 MCHC 32.3 32.1 RDW 13.1 13.1 Plt Count 230 287 MPV 10.6 10.3 Immature Gran % 0.8 Neutrophils % 79.6 Lymphocytes % 9.3 Monocytes % 6.4 Eosinophils % 3.6 Basophils % 0.3 Nucleated RBC % 0 Absolute Neutrophils 8.38 H Absolute Lymphocytes 0.98 L Absolute Monocytes 0.67 Absolute Eosinophils 0.38 Absolute Basophils 0.03 Vancomycin Trough Hep Bs Antigen Hep Bs Antibody Hep Bs Antibody, Quant Hep B Core Total Ab Hepatitis C Antibody HIV 1&2 Ag/Ab, 4th Gen
--- NOTE | 2020-09-08 09:47 | PDOC.CMPRO ---
Care Management Progress Note S/O: Carl continues to be treated empirically while awaiting culture results and [facility] consult. Per provider, due to worsening clinically, IV ABX vanco/zosyn discontinued and changed to IV meropenem today. He remains on Methadone 135mg daily for opioid dependence. CM continues to follow. A: 40 year old male admitted to [facility] 09/05/20 for Sepsis due to LLE cellulitis in setting of IVD use. P: Ritesh will likely be discharged home with no new services, anticipate he will need a last dose letter for [facility] resumption. He will follow up with his PCP and plan of care and transport with family. CM will continue to support Ritesh and his discharge planning needs.
[2020-09-08] MEDS: Acetaminophen 325 MG TAB 650 MG PO (10:10)
[2020-09-08 11:46] VITALS: BP 125/79; PULSE 62; RESP 16; TEMP 36.5; O2SAT 96
--- NOTE | 2020-09-08 12:06 | PHA.REVIEW ---
Pharmacy Admission Review - Admission Clinical Review (Last Updated 09/06/20 @ 00:19 by Amanda Cerda MD) Discharge planning issues (Acute) DVT prophylaxis (Acute) Cellulitis of left leg (Acute) shellfish derived Allergy (Mild, Unverified 09/05/20 15:53) Hives Penicillins Allergy (Unverified 09/05/20 15:53) Hives Height 6 ft Weight 94.6 kg - Renal Dosing Renal Dosing: BUN 6 mg/dL (7-18) L 09/06/20 07:41 Creatinine 0.8 mg/dL (0.70-1.30) 09/06/20 07:41 Medications needing adjustments: Reviewed (Crcl ~133 mL/min current meds okay) - Anticoagulation Anticoagulation: Hgb 11.5 g/dL (13.5-17.5) L 09/08/20 07:35 Hct 35.8 % (40.0-50.0) L 09/08/20 07:35 Plt Count 287 10^3/uL (130-400) 09/08/20 07:35 Creatinine 0.8 mg/dL (0.70-1.30) 09/06/20 07:41 DVT Prohphylaxis: Reviewed Medications: Enoxaparin Therapeutic Anticoagulation: N/A - Opiate Usage Evaluate Pain Scale/Pains Meds: Reviewed Scheduled Bowel Reg ordered if on Opiates?: No (has prn docusate ordered) - Relevant Labs Sodium 139 mmol/L (136-145) 09/06/20 07:41 Potassium 3.8 mmol/L (3.5-5.1) 09/06/20 07:41 Chloride 103 mmol/L (98-107) 09/06/20 07:41 Magnesium 2.0 mg/dL (1.8-2.4) 09/06/20 07:41 C-Reactive Protein > 25.00 mg/dL (0.0-0.3) H 09/06/20 07:41 Electrolytes, C-Reactive P, ESR: Reviewed - DM Control DM Control: Glucose 112 mg/dL (74-106) H 09/06/20 07:41 Insulin Dosing: N/A - Heart Failure/AR EF%, ARNULFO's, B-Blockers, Diuretics: N/A - BP Control BP Control: Blood Pressure 125/79 Blood Pressure 118/79 Blood Pressure 112/71 If elevated: N/A - Qtc Review If Elevated: N/A - IV to PO Switch IV Medications: Reviewed - Home Meds Home Med List reviewed: Reviewed (methadone dose verified with BAART) Relevent Home Meds Not ordered & why?: Both home meds are ordered. - Current meds Current Medication Order Review: Reviewed - Comments Comments/Follow Ups: Watch VS, labs, for culture results and for med changes (possible need of additional BM meds). Antibiotic Activity - Pharmacy Antibiotic Review Pharmacy Antibiotic Activity: Abx regimen adjustment (Redness migrated outside of the margins per nursing report. Vanco and ceftriaxone discontinued, meropenem started. BC no growth @48hrs.)
[2020-09-08] MEDS: MEROPENEM 1 GM in Normal Saline 100 ML IVPB ×2 (12:23→19:53)
[2020-09-08] MEDS: Nicotine 21 MG/24 HR PATCH TD (14:04)
[2020-09-08 15:13] VITALS: BP 143/81; PULSE 78; RESP 18; TEMP 35.4; O2SAT 99
[2020-09-08 19:20] VITALS: BP 123/83; PULSE 75; RESP 17; TEMP 36.1; O2SAT 99
[2020-09-08] MEDS: Enoxaparin 40 MG/0.4 ML SYR SC (19:53)
[2020-09-08] MEDS: Docusate Sodium 100 MG CAP PO (21:32)
[2020-09-08 23:42] VITALS: BP 130/76; PULSE 58; RESP 17; TEMP 36.6; O2SAT 97
[2020-09-09] VITALS (7 sets, daily range): BP systolic 108–137; BP diastolic 65–92; PULSE 55–106; RESP 16–20; TEMP 35.9–36.9; O2SAT 97–100
[2020-09-09] MEDS: Normal Saline Flush 10 ML SYR IVP ×2 (02:46→20:29)
[2020-09-09] MEDS: Normal Saline 1,000 ML 30 ML IV (02:46)
[2020-09-09] MEDS: MEROPENEM 1 GM in Normal Saline 100 ML IVPB ×3 (04:37→20:30)
[2020-09-09 07:47] LABS: Abs Immature Grans 0.41 10^3/uL (0.0-0.06); HCT 39.6 % (40.0-50.0); HGB 12.8 g/dL (13.5-17.5); MCH 28.1 pg (27.0-33.0); MCHC 32.3 % (32.0-36.0); MCV 86.8 fL (80-95); MPV 10.3 fL (8.0-11.0); Nucleated RBC 0 %; Platelet Count 370 10^3/uL (130-400); RBC 4.56 10^6/uL (4.36-5.78); RDW 13.2 % (11.8-14.1); RDW-SD 41.6 fL; WBC 8.93 10^3/uL (4.4-10.8)
[2020-09-09 07:54] LABS: ALT 100 U/L (16-63); AST 61 U/L (15-37); Albumin 2.7 g/dL (3.4-5.0); Alkaline Phosphatase 117 U/L (46-116); Anion Gap 5.3 mmol/L (3-11); BUN 12 mg/dL (7-18); Bilirubin, Total 0.3 mg/dL (0.2-1.0); C-Reactive Protein 15.11 mg/dL (0.0-0.3); CO2 32.7 mmol/L (21.0-32.0); Calcium 9.7 mg/dL (8.5-10.1); Chloride 103 mmol/L (98-107); Glucose 87 mg/dL (74-106); Potassium 4.3 mmol/L (3.5-5.1); Sodium 141 mmol/L (136-145); Total Protein 8.3 g/dL (6.4-8.2)
[2020-09-09] MEDS: Nicotine 21 MG/24 HR PATCH TD (08:08)
[2020-09-09] MEDS: Methadone Liquid 10 MG/ML 135 MG PO (08:09)
[2020-09-09 08:46] LABS: Absolute Eosinophil Count 0.36 10^3/uL (0.0-0.7); Absolute Lymphocyte Count 2.32 10^3/uL (1.2-3.4); Absolute Monocyte Count 0.54 10^3/uL (0.1-0.8); Absolute Neutrophil Count 5.45 10^3/uL (1.2-6.7); Atypical Lymphocytes % 2
[2020-09-09 08:47] LABS: Diff Comment Manual Differential; Myelocytes % 3; Polychromasia Present
--- NOTE | 2020-09-09 09:41 | W.PM.PROGNOT ---
Date of Service Date of service: 09/09/20 Time of Service: 09:41 Assessment and Plan Assessment and plan (1) Cellulitis of left leg: Status: Acute Assessment and plan: worsening erythema yesterday so started on meropenem day 2 Blood cultures negative to date Was on vancomycn/zosyn empirically until 09/08 when appeared to be failing clinically so was change to meropenem. CRP now down to 15 from 25, procal 0.6 Xray results : Mild soft tissue swelling in the lower leg. No abnormal periosteal reaction or erosive changes in tibia and fibula to suggest osteomyelitis. at this time CT no warranted, if does not improve consider CT (2) Opioid dependence: Status: Chronic Assessment and plan: Methadone verified he takes 135 mg daily ordered and will continue (3) IVDU (intravenous drug user): Status: Chronic Assessment and plan: He states he has never gone through withdrawal for opioids continue methadone as above CIWA protocol discontinued, he only drinks 1-2 beers a couple times a week (4) Polysubstance abuse: Status: Chronic Assessment and plan: As above Provide nicotrol for nicotine dependence. will add nicotine patch (5) DVT prophylaxis: Status: Acute Assessment and plan: Sc lovenox (6) Discharge planning issues: Status: Acute Assessment and plan: Full code above case discussed with Dr. George Subjective Subjective Patient reports: no new complaints, feels better, tolerating liquids well, tolerating a regular diet and afebrile Interval history since last seen: marked improvement in erythema since yesterday. well within skin markings and decreased redness and swelling Exam Narrative Exam Narrative: General: Pleasant middle-aged male, cooperative, calm, in no distress. Neurological: A&Ox3, no focal deficits Psychiatric: Appropriate speech pattern/content Skin: L ankle erythematous and swelling significantly improved since yesterday and well within the second lines marked. No open wounds/abrasions. small pen point scab to inner ankle HEENT: Atraumatic, normocephalic, EOMI, MMM, clear oropharynx, no submandibular or cervical lymphadenopathy, no goiter or JVD Cardiovascular: RRR, no murmurs Lungs: respirations even and unlabored Gastrointestinal: soft, nontender, nondistended, BS x 4 Objective Last Vital Signs Temp 36.1 C L 09/09/20 07:43 Pulse 57 L 04/21/21 07:43 Resp 17 09/09/20 07:43 BP 114/72 09/09/20 07:43 Pulse Ox 97 09/09/20 07:43 Laboratory Results - last 24 hr 09/09/20 09/09/20 06:20 06:20 WBC 8.93 RBC 4.56 Hgb 12.8 L Hct 39.6 L MCV 86.8 MCH 28.1 MCHC 32.3 RDW 13.2 Plt Count 370 MPV 10.3 Immature Gran % See Differential Neutrophils % 61.0 Lymphocytes % 24.0 Atypical Lymphs % 2 Monocytes % 6.0 Eosinophils % 4.0 Basophils % 0.0 Myelocytes % 3 Nucleated RBC % 0 Absolute Neutrophils 5.45 Absolute Lymphocytes 2.32 Absolute Monocytes 0.54 Absolute Eosinophils 0.36 Absolute Basophils 0.00 RBC Morphology See below Polychromasia Present Sodium 141 Potassium 4.3 Chloride 103 Carbon Dioxide 32.7 H Anion Gap 5.3 BUN 12 D Creatinine 1.0 Estimated GFR/1.73 m2 >= 60.00 Glucose 87 Calcium 9.7 Total Bilirubin 0.3 AST 61 H ALT 100 H Alkaline Phosphatase 117 H C-Reactive Protein 15.11 H Total Protein 8.3 H Albumin 2.7 L
--- NOTE | 2020-09-09 10:32 | CMPROGNOTE_ITS ---
- If Service Date Differs Date of service: 09/09/20 Time of Service: 10:32 Care Management Progress Note S/O: Ritesh was sitting up in bed when CM met with him. He stated that his leg is doing better and pulled up his pajama leg and showed CM. The erythema is well within the outlined borders and the swelling has decreased as noted by Ritesh as well as CM. Ritesh stated that it is less painful as well. He anticipates remaining in the hospital for the next few days according to what the provider has told him. He remains afebrile, his WBC is normal and his CRP, while still elevated at 15.11, is decreased from previous levels. Rietsh admitted to being a bit bored but stated that having his Ipad has helped a lot. A: 40 year old male admitted to [facility] 09/05/20 for Sepsis due to LLE cellulitis in setting of IVD use. P: Ritesh will likely be discharged home with no new services, anticipate he will need a last dose letter for [facility] resumption. He will follow up with his PCP and plan of care and transport with family. CM will continue to support Ritesh and his discharge planning needs. cc:
[2020-09-09] MEDS: Acetaminophen 325 MG TAB 650 MG PO (11:12)
[2020-09-09 14:51] LABS: HCV RNA Qualitative Undetected (Undetected)
[2020-09-09] MEDS: Enoxaparin 40 MG/0.4 ML SYR SC (20:28)
[2020-09-09] MEDS: Docusate Sodium 100 MG CAP PO (22:39)
--- NOTE | 2020-09-10 | DI.MRI_ITS ---
EXAM: MR LOWER EXTREMITY LT WO CLINICAL HISTORY: r/o osteo TECHNIQUE: Multiplanar multisequence MRI was performed. COMPARISON: CR,XR XR TIB/FIB LT from 09/05/2020 FINDINGS: Multisequence MRI scan of the area of concern in the left tibia-fibula was performed on a 1.5 ross u nit. IV access was apparently not possible. Recent plain films 09/05/2020 were reviewed SOFT TISSUES: There is an abnormal fluid collection in the deep subcutaneous tissues remington laterally which measures 4.4 cm AP by 1.3 cm wide by 5.4 cm craniocaudal. This is presumed to be infectious gi joselito that there is surrounding edema and overlying skin thickening. There is mild increased signal in the subjacent extensor musculature. There is no obvious tenosynovitis at this time. MARROW:There is no abnormal intraosseous signal in the tibia and fibula to suggest osteomyelitis. No fractures or osseous lesions evident. OTHER: None. IMPRESSION: 1. Abnormal fluid collection measuring 4.4 x 1.3 x 5.4 cm. Surrounding soft tissue edema. First consi deration is for abscess. There is some mild increased signal seen in the subjacent musculature of the extensor compartment. 2. No abnormal marrow signal to suggest osteomyelitis. DATA REPOSITORY:
[2020-09-10] MEDS: MEROPENEM 1 GM in Normal Saline 100 ML IVPB ×3 (03:52→21:28)
[2020-09-10 04:01] VITALS: BP 111/74; PULSE 53; RESP 16; TEMP 35.9; O2SAT 98
[2020-09-10] MEDS: Nicotine 21 MG/24 HR PATCH TD ×2 (07:35→17:03)
[2020-09-10] MEDS: Methadone Liquid 10 MG/ML 135 MG PO (07:36)
[2020-09-10 08:41] VITALS: BP 134/87; PULSE 61; RESP 18; TEMP 36.4; O2SAT 98
--- NOTE | 2020-09-10 09:54 | PDOC.CMPRO ---
- If Service Date Differs Date of service: 09/10/20 Time of Service: 09:54 Care Management Progress Note S/O: Ritesh was sitting up in bed when CM met with him. He was smiling and pleasant and shared that the mobility and pain in his ankle have improved. He stated that he is not too sure about the infection although the erythema remains within the margins identified. Ritesh shared that he had an MRI today to rule out a bone infection. The MRI did not show any evidence of osteomyelitis, however there is a deep subcutaneous fluid collection suspicious for an abscess. Ritesh shared that he has been told that if he has a bone infection he may need 6 weeks of IV antibiotics, which concerns him. A: 40 year old male admitted to [facility] 09/05/20 for Sepsis due to LLE cellulitis in setting of IVD use. P: Ritesh will likely be discharged home with no new services, although OP IV antibiotic therapy may be recommended.. He will need a last dose letter for [facility]ART resumption. Ritesh will follow up with his PCP and plan of care and transport with family. CM will continue to support Ritesh and his discharge planning needs.
[2020-09-10] MEDS: Normal Saline 1,000 ML 30 ML IV (11:38)
--- NOTE | 2020-09-10 11:44 | W.PM.PROGNOT ---
Date of Service Date of service: 09/10/20 Time of Service: 11:15 Assessment and Plan Assessment and plan (1) Cellulitis of left leg: Start date: 09/10/20 Start time: 11:50 Status: Acute Assessment and plan: started on meropenem, receding from above second lines, though BCNTD, concerned for osteo, MRI with/wo consult surgery if needed Was on vancomycn/zosyn empirically until 09/08 when appeared to be failing clinically so was change to meropenem. CRP now down to 15 from 25, procal 0.6 Xray results : Mild soft tissue swelling in the lower leg. No abnormal periosteal reaction or erosive changes in tibia and fibula to suggest osteomyelitis. (2) Opioid dependence: Start date: 09/10/20 Start time: 11:53 Status: Chronic Assessment and plan: Methadone verified he takes 135 mg daily ordered and will continue (3) IVDU (intravenous drug user): Start date: 09/10/20 Start time: 11:53 Status: Chronic Assessment and plan: He states he has never gone through withdrawal for opioids continue methadone as above CIWA protocol discontinued, he only drinks 1-2 beers a couple times a week (4) Polysubstance abuse: Start date: 09/10/20 Start time: 11:53 Status: Chronic Assessment and plan: As above Provide nicotrol for nicotine dependence. will add nicotine patch (5) DVT prophylaxis: Start date: 09/10/20 Start time: 11:53 Status: Acute Assessment and plan: Sc lovenox (6) Discharge planning issues: Start date: 09/10/20 Start time: 11:53 Status: Acute Assessment and plan: Full code above case discussed with Dr. George Subjective Subjective Patient reports: other Interval history since last seen: minimal improvement to LLE. He states pain mildly improved. Will get MRI r/o osteo. No signs of osteo or withdrawal. He denies CP, SOB N/V/d Exam Narrative Exam Narrative: General: Pleasant middle-aged male, cooperative, calm, in no distress. Neurological: A&Ox3, no focal deficits Psychiatric: Appropriate speech pattern/content Skin: L ankle erythematous and swelling improving and well within the second lines marked. Still concern for around meallous bone of ankle. No open wounds/abrasions. small pen point scab to inner ankle HEENT: Atraumatic, normocephalic, EOMI, MMM, clear oropharynx, no submandibular or cervical lymphadenopathy, no goiter or JVD Cardiovascular: RRR, no murmurs Lungs: respirations even and unlabored Gastrointestinal: soft, nontender, nondistended, BS x 4 Objective Last Vital Signs Temp 36.4 C L 09/10/20 08:41 Pulse 61 09/10/20 08:41 Resp 18 09/10/20 08:41 BP 134/87 09/10/20 08:41 Pulse Ox 98 09/10/20 08:41 Laboratory Results - last 24 hr 09/06/20 08:05 HCV RNA Qual (PCR) Undetected Hepatitis C RNA Quant Not Applicable
[2020-09-10 11:45] VITALS: BP 124/79; PULSE 89; RESP 18; TEMP 36.3; O2SAT 97
[2020-09-10] MEDS: diazePAM 5 MG TAB PO (13:44)
--- NOTE | 2020-09-10 14:15 | DI.RAD_ITS ---
EXAM: XR PORTABLE CHEST AP POST LINE CLINICAL HISTORY: PICC line placement. TECHNIQUE: 2D digital imaging was performed. COMPARISON: No exams were available for comparison FINDINGS: Heart size is normal. The mediastinum is not widened. Lungs are clear. No infiltrates nor obvious pleural effusions. Distal tip of the left PICC line is at the SVC-RA junction. IMPRESSION: No acute pulmonary findings on this single AP portable view of the chest. Distal PICC line tip is at the SVC-RA junction. DATA REPOSITORY: RADIATION DOSE DELIVERED: All CT scans at this facility use at least one of these dose optimization techniques: automated exposure control; mA and/or kV adjustment per patient size (includes targeted e xams where dose is matched to clinical indication); or iterative reconstruction.
--- NOTE | 2020-09-10 14:15 | DI.RAD_ITS ---
EXAM: XR PORTABLE CHEST AP POST LINE CLINICAL HISTORY: PICC PLACEMENT. TECHNIQUE: 2D digital imaging was performed. COMPARISON: Earlier same date FINDINGS: Heart size is normal. The mediastinum is not widened. Lungs are clear. No infiltrates nor obvious pleural effusions. The PICC line is been retracted approximately 5 cm. The PICC line is presently in good position in t he SVC. IMPRESSION: No acute pulmonary findings on this single AP portable view of the chest. PICC line is in satisfactory position in the SVC. DATA REPOSITORY: RADIATION DOSE DELIVERED: All CT scans at this facility use at least one of these dose optimization techniques: automated exposure control; mA and/or kV adjustment per patient size (includes targeted e xams where dose is matched to clinical indication); or iterative reconstruction.
[2020-09-10] MEDS: Bacitracin 1 PACKET (15:21)
[2020-09-10 16:48] VITALS: BP 135/80; PULSE 64; RESP 18; TEMP 36.6; O2SAT 98
--- NOTE | 2020-09-10 18:39 | SCONE_ITS ---
Date of service: 09/10/20 Time of Service: 17:30 Assessment and Plan Assessment and plan (1) Cellulitis of left leg: Start date: 09/10/20 Status: Acute Assessment and plan: Cellulitis of left lower leg, now with likely abscess formation. The area of involvement is close to the joint, with questionable tendon involvement, and orthopedics has also been consulted. Plan for combined OR tomorrow for I&D, culture, and washout. Pt is NPO past midnight. History of Present Illness History of Present Illness Chief Complaint: LLE pain Narrative: This is a 40-year-old male with a history of polysubstance abuse, including IV drug use, who was admitted on 09/05 with LLE cellulitis. He admits to injecting drugs in the left foot area on 09/03. He noted significant swelling, and pain with walking on 09/04. Persistence of these symptoms prompted him to present to the ED. He has been being treated with vancomycin and clindamycin, as well as meropenem, but due to continued swelling and questionable fluctuance, an MRI was ordered today. It showed a fluid collection in the subcutaneous space without osteomyelitis. He denies any previous similar history. Consults Consult date: 09/10/20 Requesting physician: Luma Motley Review of Systems Constitutional Constitutional: Denies anorexia, Denies body ache(s), Denies chills and Denies fever(s) Cardiovascular Cardiovascular: Denies chest pain, Denies irregular heart rhythm, Reports leg edema (left lower leg, with improvement of erythema) and Denies dyspnea Respiratory Respiratory: Denies cough and Denies dyspnea Gastrointestinal Gastrointestinal: Denies abdominal pain, Reports diarrhea, Reports loose stools and Denies vomiting Genitourinary Genitourinary: Denies difficulty urinating Musculoskeletal Musculoskeletal: Reports limited range of motion, Denies numbness and Denies tingling Neurologic Neurologic: Denies numbness and Denies tingling [facility] Medical History ADHD (attention deficit hyperactivity disorder) Depression GERD (gastroesophageal reflux disease) HPV (human papilloma virus) infection Mood disorder Opioid dependence Tobacco abuse Surgical History No pertinent past surgical history Family History (Updated 09/06/20 @ 00:20 by Amanda Cerda MD) Mother Colon cancer Social History (Updated 09/06/20 @ 00:23 by Amanda Cerda MD) Smoking/Tobacco Use Status: Current every day Tobacco Type: cigarettes Smoking packs per day: 1 Smoking cigarettes per day: 20.0 Years smoked: 25 Smoking pack- years: 25.00 Counseling given: provider counseling, support medications and counseling >3 minutes Smoking risk assessment performed?: Yes Alcohol Intake: current Alcohol type: other Drug use: Daily Substance use type: marijuana, crack/cocaine, amphetamines, tranquilizers, IV d rugs and prescription drug Counseling given: Yes Counseling provided: provider counseling Do you feel safe in your relationship?: Yes Exam Const General: cooperative, comfortable and no acute distress Orientation: alert, awake and oriented x3 Neck Neck: normal visual inspection and supple Resp Effort & Inspection: normal respiratory effort and able to speak in complete sentences Cardio Pulses: dorsalis pedis present GI Inspection: non-distended Palpation: soft and nontender Skin General skin exam: erythema and induration Other: LLE improving cellulitis; decreasing erythema based on lines previously drawn; area of fluctuance palpable anterolateral to the lateral malleolus; in jection site not visible; no skin breakdown Full body images: 1. area of fluctuance Neuro General: patient alert, patient awake and patient oriented x3 Cognition: normal cognition Speech: speech normal Extrem Left lower extremity: edema and lower leg Other: LLE cellulitis with small area of fluctuance Results Last Vital Signs Temp 97.9 F 09/10/20 16:48 Pulse 64 09/10/20 16:48 Resp 18 09/10/20 16:48 BP 135/80 09/10/20 16:48 Pulse Ox 98 09/10/20 16:48 Labs Result diagrams: 09/09/20 06:20 09/09/20 06:20 Imaging Imaging Studies: MRI left lower extremity(09/10/20): IMPRESSION: 1. Abnormal fluid collection measuring 4.4 x 1.3 x 5.4 cm. Surrounding soft tissue edema. First consideration is for abscess. There is some mild increased signal seen in the subjacent musculature of the extensor compartment. 2. No abnormal marrow signal to suggest osteomyelitis.
[2020-09-10 19:29] VITALS: BP 124/77; PULSE 58; RESP 16; TEMP 36.1; O2SAT 98
[2020-09-10] MEDS: Enoxaparin 40 MG/0.4 ML SYR SC (21:27)
[2020-09-10] MEDS: Normal Saline Flush 10 ML SYR 20 ML IVP (21:27)
[2020-09-10 23:01] VITALS: BP 147/79; PULSE 87; RESP 18; TEMP 36.3; O2SAT 97
[2020-09-11] VITALS (14 sets, daily range): BP systolic 100–139; BP diastolic 66–90; PULSE 50–78; RESP 10–18; TEMP 35.7–37; O2SAT 96–100
[2020-09-11] MEDS: MEROPENEM 1 GM in Normal Saline 100 ML IVPB ×2 (06:34→21:20)
--- NOTE | 2020-09-11 07:10 | OCONE_ITS ---
Date of service: 09/11/20 Time of Service: 06:54 History of Present Illness History of Present Illness Chief Complaint: Left Leg Cellulitis and Abscess Narrative: Ritesh is a 40-year-old with a past medical history of IV drug abuse and opioid dependence is on methadone therapy. He has other medical issues including tobacco abuse, anxiety, depression, and ADHD. He [place] By September 05 he was having significant pain, limiting weightbearing, as well as redness and warmth to the left leg. He denied fever at that time but did report some chills and malaise. He does report to injecting his left foot about a week prior to this injury although he does not believe the pain and redness and swelling started until [place] . Nevertheless, given his presentation to the emergency department, he was admitted to the hospital service and started on broad-spectrum intravenous antibiotics of vancomycin and Zosyn. While he clinically did not necessarily worsen he also did not improve significantly. He was kept on this for 3 days and then switched to meropenem on September 08. He has had some slight decrease in his C-reactive protein. He has not shown signs of overwhelming sepsis. However, he continues to complain of pain, swelling, and redness and warmth of the left leg. In general, he feels that the swelling has improved as well as the extent of the redness. He has also been able to ambulate on the left leg where he was unable to before, all indicating some clinical improvement. He denies any significant previous history with his left ankle. He denies previous surgery or major injury. Consults Consult date: 09/10/20 Requesting physician: Luma Motley Consult Reason Left leg abscess Assessment and Plan Assessment and plan (1) Abscess of left lower extremity excluding foot: Status: Acute Assessment and plan: Ritesh is a 40-year-old IV drug user who was admitted for cellulitis of the left leg. He has not shown significant improvements and therefore I was consulted along with surgery for help in management. An MRI was obtained prior to this consultation which demonstrated an abscess. In review of the MRI, as documented in the results section of this note, there is a clear abscess which is mostly subcutaneous about the anterior lateral left leg. This is above the fascia. Shows no signs of fasciitis. However, the subjacent muscle belly extensor digitorum longus does have some high intensity signal whic h is likely reactive although could represent a myositis. Given that he is an IV drug user MRSA is the most common bacteria. However, he did not show significant improvements with the vancomycin earlier. Unfortunately, the meropenem will not have coverage against MRSA. However, if there was a pe netrating injury at the river as he claims, we must also consider aerobic gram- negative bacilli, such as Pseudomonas and others. However, typically these type infections take some time to develop and would not usually show in 2 days and therefore I suspect that this infection is actually related to his injection of the left foot. Either way, he has an abscess now which needs to be evacuated. I agree with surgical consultation by Dr. Thomason. I would recommend irrigation and debridement of the abscess. I would also likely incised the fascia of the extensor digitorum longus to make sure there is no purulent material within the muscle itself. Without an intramuscular abscess myositis is treated with IV antibiotics. We will be able to take cultures at the time of the surgery which hopefully will help with species identification, although it may be delayed given his current antibiotic treatment. It appears that the meropenem was discontinued yesterday and his last dose was at 6:00 yesterday evening. As long as he does not deteriorate, we can continue to hold antibiotics and restart the meropenem after surgery today. Dr. Thomason will be the primary surgical consult and I will be assisting her given the proximity of this abscess to tendons and vital structures of the. However, based on the MRI, I have little concerned this violates the ankle joint nor has any deep abscess associated with the tendons of the leg. Review of Systems All systems reviewed & are unremarkable except as noted in HPI and below PFSH Medical History ADHD (attention deficit hyperactivity disorder) Depression GERD (gastroesophageal reflux disease) HPV (human papilloma virus) infection Mood disorder Opioid dependence Tobacco abuse Surgical History No pertinent past surgical history Family History Mother Colon cancer Social History Smoking/Tobacco Use Status: Current every day Tobacco Type: cigarettes Smoking packs per day: 1 Smoking cigarettes per day: 20.0 Years smoked: 25 Smoking pack- years: 25.00 Counseling given: provider counseling, support medications and counseling >3 minutes Smoking risk assessment performed?: Yes Alcohol Intake: current Alcohol type: other Drug use: Daily Substance use type: marijuana, crack/cocaine, amphetamines, tranquilizers, IV drugs and prescription drug Counseling given: Yes Counseling provided: provider counseling Do you feel safe in your relationship?: Yes Exam Narrative Exam Narrative: Ritesh is sitting up in the hospital bed. No acute distress. Alert and orient x3. Evaluation the left leg shows significant hyperemia and a dense rubor to the left distal leg and ankle region. There is notable wrinkling of the skin suggesting a decrease in swelling recently. There is no streaking erythema. No palpable masses in the popliteal fossa. There is a prominence and fullness with some fluctuance to the anterior lateral aspect the left leg. There is some tenderness to palpation of this area and surrounding it. No ankle joint eff usion is palpated. No pain to palpation of the hindfoot, midfoot, or forefoot. He endorses full sensation over the superficial peroneal nerve, deep peroneal nerve, and tibial nerve. He is able demonstrate active great toe extension and great toe flexion without difficulty. He is able to actively extend the remainder of the toes with no significant discomfort. Some passive maximal flexion of the toes causes discomfort anteriorly. He is also able demonstrate active plantar flexion and dorsiflexion of the ankle. Maximal dorsiflexion causes some pain anteriorly. Gentle passive motion of the ankle does not cause pain. No crepitus on palpation or examination. No pain with palpation of the knee. I had difficulty palpating a DP pulse but his toes were warm and well perfused with capillary refill less than 2 seconds. Results Last Vital Signs Temp 36.1 C L 09/10/20 19:29 Pulse 58 L 09/10/20 19:29 Resp 16 09/10/20 19:29 BP 124/77 09/10/20 19:29 Pulse Ox 98 09/10/20 19:29 Labs Result diagrams: 09/09/20 06:20 09/09/20 06:20 Imaging Imaging Studies: MRI of the left leg was reviewed. This demonstrates a homogenous fluid collection seen mostly suprafascial he over the anterior lateral aspect of the left leg. Measures approximately 6 x 5 x 1-1/2 cm. The fluid appears to be above the fascia overlying the anterior compartment of the leg extending down towards the level of the ankle joint but not quite to it. Subjacent to the fluid collection there is edema seen within the muscle bellies of the extensor digitorum longus. I do not see any fluid collection within the muscle bellies himself as this likely represents reactive edema although it could represent myositis. No contrast was able to be administered for more specific determination. No bony lesions. No joint effusions. Previous x-ray of the left ankle and the left tib-fib performed on September 05 was also reviewed. This demonstrates normal-appearing bones. No signs of fracture. No joint abnormalities. Mild soft tissue swelling but no gas in the soft tissues. No other suspicious findings.
[2020-09-11 07:29] LABS: HCT 42.9 % (40.0-50.0); HGB 13.7 g/dL (13.5-17.5); MCH 28.3 pg (27.0-33.0); MCHC 31.9 % (32.0-36.0); MCV 88.6 fL (80-95); MPV 9.8 fL (8.0-11.0); Platelet Count 433 10^3/uL (130-400); RBC 4.84 10^6/uL (4.36-5.78); RDW 12.9 % (11.8-14.1); RDW-SD 42.3 fL; WBC 11.22 10^3/uL (4.4-10.8)
[2020-09-11] MEDS: Nicotine 21 MG/24 HR PATCH TD (07:38)
[2020-09-11] MEDS: Normal Saline Flush 10 ML SYR 20 ML IVP ×2 (07:39→21:22)
[2020-09-11] MEDS: Methadone Liquid 10 MG/ML 135 MG PO (07:58)
--- NOTE | 2020-09-11 09:27 | CMPROGNOTE_ITS ---
- If Service Date Differs Date of service: 09/11/20 Time of Service: 09:27 Care Management Progress Note S/O: Ritesh was sitting up in bed when CM met with him. He was NPO waiting to have surgery. Ritesh was found to have an abscess on MRI and the plan is to do an I&D of the abscess. Ritesh admitted that he was a bit nervous as he has never had anesthesia before and there is a possibility that it might be necessary. CM met with Ritesh again this afternoon and he stated that he thought the procedure went well. He did have anesthesia and described chatting with the doctor and then the next thing he knew, it was over. A: 40 year old male admitted to [facility] 09/05/20 for Sepsis due to LLE cellulitis in setting of IVD use. P: Ritesh will likely be discharged home with no new services, although OP IV antibiotic therapy may be recommended.. He will need a last dose letter for BAART resumption. Ritesh will follow up with his PCP and plan of care and transport with family. CM will continue to support Ritesh and his discharge planning needs.
[2020-09-11] MEDS: Normal Saline 1,000 ML 125 ML IV ×2 (10:00→23:35)
[2020-09-11] MEDS: Lactated Ringers 1,000 ML 50 ML IV (13:42)
--- NOTE | 2020-09-11 14:49 | W.PM.PROGNOT ---
Date of Service Date of service: 09/11/20 Time of Service: 11:07 Assessment and Plan Assessment and plan (1) Abscess of left lower extremity excluding foot: Status: Acute Assessment and plan: Pt with LLE cellulitis with abscess. Pt was stable overnight with slight improvement in clinical exam. Plan for OR this afternoon in conjunction with Dr. Lopez for I&D, washout. Risks, benefits, alternatives of the procedure were discussed. Subjective Subjective Patient reports: feels better, pain is less and voiding w/o difficulty; denies nausea, vomiting and fever Exam Const General: cooperative, healthy appearing, comfortable, no acute distress and well developed Neck Neck: normal visual inspection and supple GI Palpation: soft and nontender Skin Other: multiple tattoos Extrem Left lower extremity: edema Other: decreased edema and erythema to LLE and area of fluctuance is more organized over anterolateral aspect of left lower leg Psych Speech and Movement: speech and movement normal Mood: congruent mood Affect: normal affect Thought Process: normal Objective Last Vital Signs Temp 97.9 F 09/11/20 11:05 Pulse 59 L 09/11/20 11:05 Resp 18 09/11/20 11:05 BP 103/66 09/11/20 11:05 Pulse Ox 96 09/11/20 11:05 Laboratory Results - last 24 hr 09/11/20 06:44 WBC 11.22 H RBC 4.84 Hgb 13.7 Hct 42.9 MCV 88.6 MCH 28.3 MCHC 31.9 L RDW 12.9 Plt Count 433 H MPV 9.8
[2020-09-11] MEDS: Lidocaine 1% Multi-Dose 50 ML VIAL (14:56)
--- NOTE | 2020-09-11 15:09 | ROE_ITS ---
Date of service: 09/11/20 Time of Service: 14:40 Operative Note Operative Note DATE OF PROCEDURE: 09/11/20 PRE-OP DIAGNOSIS: left lower extremity cellulitis with abscess POST-OP DIAGNOSIS: same PROCEDURE: incision and drainage, washout SURGEON: Arcenio Thomason ASSISTING SURGEON: Philip Lopez ANESTHESIA TYPE: MAC Refer to Anesthesia Record ESTIMATED BLOOD LOSS: 5 PATHOLOGY: other (aerobic and anaerobic cultures sent) COMPLICATIONS: None Patient was transported to: PACU Patient's condition: stable Implants: [place] drain was left in place Indications: This is a 40-year-old male with a history of polysubstance abuse and IVDU on methadone, who presented to the ED on 09/05 with complaints of worsening LLE pain. He described having had drugs injected in the left foot area in the few days before presentation. He also had become entangled with some kris rebar and [place]pped into the river. He had increased difficulty in ambulating due to severe pain and swelling. He has been on the Hospitalist service receiving IV vancomycin and clindamycin, and then IV meropenem, with slow improvement. An MRI of the left lower extremity was performed on 09/10, which revealed a fluid collection in the area. General surgery and orthopedic surgery were consulted. In reviewing the patient's case with Dr. Lopez from orthopedics, it was decided that we would approach the case together, as there was some initial concern for tendon or deep space involvement in the area just proximal to the ankle.. Findings: Abscess cavity containing purulence and clot, approximately 30-50cc. Intact fascia, though with some inflammation of the deep space subjacent to the extensor hallucis longus Procedure Description: The patient was identified by name and birthdate, and brought into the operating room. He was moved over the operating room table and was secured in the supine position. MAC anesthesia was induced. The left lower extremity was prepped and draped in standard fashion. A time out was called and participated in by the entire operating room team. Once we were in agreement, we proceeded. The skin and subcutaneous tissues lateral to the tibia on the left leg in the area overlying the area of fluctuance were infiltrated with local anesthesia. An ~5cm vertical incision was made with a #15 blade down into the cavity. Purulence and blood clot were immediately encountered. The wound was swabbed for both aerobic and anaerobic cultures. The cavity was bluntly swept and evacuated of pus and clot, yielding ~30-50cc. The cavity was irrigated. The superficial peroneal nerve was identified laterally and away from the incision. Examining the fascia and the base of the cavity, it appeared intact, however, there did seem to be some area of local inflammation. Dr. Lopez performed a very limited fasciotomy of the extensor retinaculum. This did not readily reveal any further deep space abscess or collection. We proceeded to irrigate the wound thoroughly with saline. A 1/4 Miracle drain was placed with the tip extending deep into the lateral space of the abscess cavity. The skin was approximated using 2-0 nylon in a vertical mattress pattern. The wound was dressed with 4x4 gauze, and Tegaderm dressing. All counts of soft and sharp objects were correct. Of note, Dr. Lopez's presence was necessary to aid in identification of relevant anatomy, and clinical decision making.
[2020-09-11] MEDS: fentaNYL 100 MCG/2 ML VIAL IVP (15:10)
--- NOTE | 2020-09-11 15:36 | W.PM.PROGNOT ---
Date of Service Date of service: 09/11/20 Time of Service: 08:00 Assessment and Plan Assessment and plan (1) Cellulitis of left leg: Start date: 09/11/20 Start time: 08:00 Status: Acute Assessment and plan: [place] stopped last night for surgery today MRI revealing There is an abnormal fluid collection in the deep subcutaneous tissues [place] laterally which measures 4.4 cm AP by 1.3 cm wide by 5.4 cm craniocaudal. Both surgery and ortho consulted, surgery is consulting physician and ortho is back up, concern for myositis, cultures will be taken in the OR and sent for sensitivities. Will resume antibiotics based surgical recommendations Trend crp. cbc (2) Opioid dependence: Start date: 09/11/20 Start time: 08:00 Status: Chronic Assessment and plan: Methadone verified he takes 135 mg daily ordered and will continue (3) IVDU (intravenous drug user): Start date: 09/11/20 Start time: 08:00 Status: Chronic Assessment and plan: He states he has never gone through withdrawal for opioids continue methadone as above No signs or symptoms of w/d (4) Polysubstance abuse: Start date: 09/11/20 Start time: 15:45 Status: Chronic Assessment and plan: As above Provide nicotrol for nicotine dependence. will add nicotine patch (5) DVT prophylaxis: Start date: 09/11/20 Start time: 15:46 Status: Acute Assessment and plan: Sc lovenox (6) Discharge planning issues: Start date: 09/11/20 Start time: 15:46 Status: Acute Assessment and plan: Full code above case discussed with Dr. George Subjective Subjective Patient reports: other Interval history since last seen: Going to the OR today for I/D with wash out after MRI reveal abscess. NPO since MN denies CP, SOB, N/V/D Exam Narrative Exam Narrative: General: Pleasant middle-aged male, cooperative, calm, in no distress. Neurological: A&Ox3, no focal deficits Psychiatric: Appropriate speech pattern/content Skin: L ankle erythematous and swelling improving and well within the second lines marked. Still concern for around anterior lateral bone of ankle very dark red, almost purple, has not improved since admission. No open wounds/abrasions. small pen point scab to inner ankle HEENT: Atraumatic, normocephalic, EOMI, MMM, clear oropharynx, no submandibular or cervical lymphadenopathy, no goiter or JVD Cardiovascular: RRR, no murmurs Lungs: respirations even and unlabored Gastrointestinal: soft, nontender, nondistended, BS x 4 Objective Last Vital Signs Temp 36.3 C L 09/11/20 15:10 Pulse 50 L 09/11/20 15:10 Resp 10 L 09/11/20 15:10 BP 116/85 09/11/20 15:10 Pulse Ox 100 09/11/20 15:10 Laboratory Results - last 24 hr 09/11/20 06:44 WBC 11.22 H RBC 4.84 Hgb 13.7 Hct 42.9 MCV 88.6 MCH 28.3 MCHC 31.9 L RDW 12.9 Plt Count 433 H MPV 9.8
[2020-09-11] MEDS: oxyCODONE 15 MG TAB PO ×2 (17:58→22:37)
[2020-09-11] MEDS: Enoxaparin 40 MG/0.4 ML SYR SC (21:15)
[2020-09-11] MEDS: Acetaminophen 325 MG TAB 650 MG PO (23:36)
[2020-09-12 03:00] VITALS: BP 119/77; PULSE 50; RESP 18; TEMP 35.5; O2SAT 99
[2020-09-12] MEDS: MEROPENEM 1 GM in Normal Saline 100 ML IVPB ×3 (06:03→21:09)
[2020-09-12] MEDS: Normal Saline 1,000 ML 125 ML IV (06:04)
[2020-09-12] MEDS: Acetaminophen 325 MG TAB 650 MG PO ×2 (06:09→10:07)
[2020-09-12] MEDS: oxyCODONE 15 MG TAB PO ×4 (06:09→21:03)
[2020-09-12 06:49] LABS: Abs Immature Grans 0.28 10^3/uL (0.0-0.06); Absolute Basophil Count 0.07 10^3/uL (0.0-0.2); Absolute Eosinophil Count 0.35 10^3/uL (0.0-0.7); Absolute Lymphocyte Count 3.22 10^3/uL (1.2-3.4); Absolute Monocyte Count 0.68 10^3/uL (0.1-0.8); Absolute Neutrophil Count 5.76 10^3/uL (1.2-6.7); Basophils % 0.7; Eosinophils % 3.4; HCT 40.3 % (40.0-50.0); HGB 12.7 g/dL (13.5-17.5); Immature Grans % 2.7; Lymphocytes % 31.1; MCH 28.1 pg (27.0-33.0); MCHC 31.5 % (32.0-36.0); MCV 89.2 fL (80-95); MPV 9.8 fL (8.0-11.0); Monocytes % 6.6; Neutrophils % 55.5; Nucleated RBC 0 %; Platelet Count 394 10^3/uL (130-400); RBC 4.52 10^6/uL (4.36-5.78); RDW 12.9 % (11.8-14.1); RDW-SD 42.5 fL; WBC 10.36 10^3/uL (4.4-10.8)
[2020-09-12 06:58] LABS: Anion Gap 1.5 mmol/L (3-11); BUN 14 mg/dL (7-18); CO2 33.5 mmol/L (21.0-32.0); CREATININE 0.9 mg/dL (0.70-1.30); Calcium 8.9 mg/dL (8.5-10.1); Chloride 104 mmol/L (98-107); Glucose 98 mg/dL (74-106); Magnesium 2.1 mg/dL (1.8-2.4); Potassium 4.3 mmol/L (3.5-5.1); Sodium 139 mmol/L (136-145)
[2020-09-12] MEDS: Normal Saline Flush 10 ML SYR 20 ML IVP ×2 (07:25→21:02)
[2020-09-12] MEDS: Nicotine 21 MG/24 HR PATCH TD (07:25)
[2020-09-12 07:31] VITALS: BP 117/73; PULSE 66; RESP 16; TEMP 37.2; O2SAT 99
[2020-09-12] MEDS: Methadone Liquid 10 MG/ML 135 MG PO (08:08)
[2020-09-12 11:32] VITALS: BP 136/87; PULSE 85; RESP 18; TEMP 36.6; O2SAT 98
--- NOTE | 2020-09-12 12:55 | W.PM.PROGNOT ---
Date of Service Date of service: 09/12/20 Time of Service: 12:55 Assessment and Plan Assessment and plan (1) Cellulitis of left leg: Start date: 09/12/20 Start time: 13:42 Status: Acute Assessment and plan: POD 1. I/D with wash out and fasciotomy. Doing well, little pain receding erythema. redness around ankle has improved and receding around foot has improved. surgical culture with gram positive cocci anaerobic culture pending continue roxicodone with tylenol for pain (2) Opioid dependence: Start date: 09/12/20 Start time: 13:46 Status: Chronic Assessment and plan: Methadone verified he takes 135 mg daily ordered and will continue (3) IVDU (intravenous drug user): Start date: 09/12/20 Start time: 13:47 Status: Chronic Assessment and plan: He states he has never gone through withdrawal for opioids continue methadone as above No signs or symptoms of w/d (4) Polysubstance abuse: Start date: 09/12/20 Start time: 13:47 Status: Chronic Assessment and plan: As above Provide nicotrol for nicotine dependence. will add nicotine patch (5) DVT prophylaxis: Start date: 09/12/20 Start time: 13:47 Status: Acute Assessment and plan: Sc lovenox (6) Discharge planning issues: Start date: 09/12/20 Start time: 13:47 Status: Acute Assessment and plan: Full code above case discussed with Dr. George Subjective Subjective Patient reports: feels better Interval history since last seen: POD 1 of abscess drain and wash out. Doing well. Ankle appears improve, erythema improving will continue meropenem. Patient has little pain. [place] drain in place. Denies CP, SOB, N/V/d Exam Narrative Exam Narrative: General: Pleasant middle-aged male, cooperative, calm, in no distress. Neurological: A&Ox3, no focal deficits Psychiatric: Appropriate speech pattern/content Skin: Left ankle improved, erythema is improving, nilda drain in place. Receding erythema down go from ankle HEENT: Atraumatic, normocephalic, EOMI, MMM, clear oropharynx, no submandibular or cervical lymphadenopathy, no goiter or JVD Cardiovascular: RRR, no murmurs Lungs: respirations even and unlabored Gastrointestinal: soft, nontender, nondistended, BS x 4 Objective Last Vital Signs Temp 36.6 C 09/12/20 11:32 Pulse 85 09/12/20 11:32 Resp 18 09/12/20 11:32 BP 136/87 09/12/20 11:32 Pulse Ox 98 09/12/20 11:32 Laboratory Results - last 24 hr 09/12/20 09/12/20 06:20 06:20 WBC 10.36 RBC 4.52 Hgb 12.7 L Hct 40.3 MCV 89.2 MCH 28.1 MCHC 31.5 L RDW 12.9 Plt Count 394 MPV 9.8 Immature Gran % 2.7 Neutrophils % 55.5 Lymphocytes % 31.1 Monocytes % 6.6 Eosinophils % 3.4 Basophils % 0.7 Nucleated RBC % 0 Absolute Neutrophils 5.76 Absolute Lymphocytes 3.22 Absolute Monocytes 0.68 Absolute Eosinophils 0.35 Absolute Basophils 0.07 Sodium 139 Potassium 4.3 Chloride 104 Carbon Dioxide 33.5 H Anion Gap 1.5 L BUN 14 Creatinine 0.9 Estimated GFR/1.73 m2 >= 60.00 Glucose 98 Calcium 8.9 Magnesium 2.1
--- NOTE | 2020-09-12 14:58 | W.PM.PROGNOT ---
Date of Service Date of service: 09/12/20 Time of Service: 14:58 Assessment and Plan Assessment and plan (1) Abscess of left lower extremity excluding foot: Status: Acute Assessment and plan: POD#1 s/p incision and drainage of abscess, washout, and very limited fasciotomy. Pt is doing well. --Continue local wound care with dressing changes daily/prn when saturated--4x4 gauze with paper tape --OOB and ambulate --pain control --anticipate removing drain tomorrow --Gram positive cocci on initial aerobic culture --anaerobic culture pending --continue antibiotics (2) Tobacco abuse: Status: Chronic Assessment and plan: Pt counseled for >10 minutes on the importance of tobacco cessation Subjective Subjective Patient reports: feels better, tolerating a regular diet and voiding w/o difficulty; denies nausea, vomiting and shortness of breath Interval history since last seen: Pt is doing well on POD#1 s/p incision and drainage of a left lower extremity abscess, washout, with limited fasciotomy. His pain is controlled with current oral meds. He has been able to ambulate with decreased pain. He is voiding well, without difficulty. He is having loose stools, only one so far today. Overall, he feels well. Exam Const General: cooperative, comfortable and no acute distress Nutritional Appearance: average body habitus Orientation: alert, awake and oriented x3 HENMT Head: no raccoon eyes Ears: hearing grossly normal bilaterally General nose exam: external nose normal Neck Neck: supple Resp Effort & Inspection: normal respiratory effort, able to speak in complete sentences and no respiratory distress Cardio Pulses: posterior tibial pulses present and dorsalis pedis present GI Inspection: non-distended Palpation: soft and nontender Extrem Left lower extremity: no edema Other: Overall, swelling and rubor is down. The lower extremity is still a little warm. The dressing was taken down, and incision is intact. [place] drain is intact in inferior wound. No significant purulent drainage on dressing. No areas of fluctuance palpated around the wound. DP pulses palpable. Still some pain with passive and active dorsiflexion. Psych Mental Status: mental status grossly normal Affect: normal affect Attitude: cooperative Thought Process: normal Insight: insight good Objective Last Vital Signs Temp 97.9 F 09/12/20 11:32 Pulse 85 09/12/20 11:32 Resp 18 09/12/20 11:32 BP 136/87 09/12/20 11:32 Pulse Ox 98 09/12/20 11:32 Laboratory Results - last 24 hr 09/12/20 09/12/20 06:20 06:20 WBC 10.36 RBC 4.52 Hgb 12.7 L Hct 40.3 MCV 89.2 MCH 28.1 MCHC 31.5 L RDW 12.9 Plt Count 394 MPV 9.8 Immature Gran % 2.7 Neutrophils % 55.5 Lymphocytes % 31.1 Monocytes % 6.6 Eosinophils % 3.4 Basophils % 0.7 Nucleated RBC % 0 Absolute Neutrophils 5.76 Absolute Lymphocytes 3.22 Absolute Monocytes 0.68 Absolute Eosinophils 0.35 Absolute Basophils 0.07 Sodium 139 Potassium 4.3 Chloride 104 Carbon Dioxide 33.5 H Anion Gap 1.5 L BUN 14 Creatinine 0.9 Estimated GFR/1.73 m2 >= 60.00 Glucose 98 Calcium 8.9 Magnesium 2.1
[2020-09-12 15:30] VITALS: BP 136/87; PULSE 85; RESP 18; TEMP 36.6; O2SAT 98
--- NOTE | 2020-09-12 16:36 | CMPROGNOTE_ITS ---
- If Service Date Differs Date of service: 09/12/20 Time of Service: 16:36 Care Management Progress Note S/O: Carl was sleeping when I met with him, and CM chose not to wake him. Per report, he went to the OR for I&D yesterday. MD is waiting on blood cultures to determine antibiotic course. No change to plan. CM will continue to follow. A: Carl is a 40 year old male admitted to [facility] 09/05/20 for Sepsis due to LLE cellulitis in setting of IVD use. P: Ritesh will likely be discharged home with no new services, although OP IV antibiotic therapy may be recommended.. He will need a last dose letter for BAART resumption. Ritesh will follow up with his PCP and plan of care and tra [place] with family. CM will continue to support Ritesh and his discharge planning needs.
[2020-09-12] MEDS: Enoxaparin 40 MG/0.4 ML SYR SC (21:03)
--- NOTE | 2020-09-12 21:06 | W.PM.PROGNOT ---
Date of Service Date of service: 09/12/20 Time of Service: 08:06 Assessment and Plan Assessment and plan (1) Abscess of left lower extremity excluding foot: Status: Acute Assessment and plan: Ritesh is a 40-year-old who is status post I&D of a left distal leg abscess. I was asked to be involved by Dr. Thomason due to the proximity of the extensor tendons in the ankle joint. I did perform a small fasciotomy overlying the EDL tendon and muscle belly which showed no findings of deep abscess. At this point, treatment can continue with typical abscess treatment per surgery and hospitalist management. I will continue to follow peripherally and will be happy to intervene if needed but this point I expect that things will continue to improve with the abscess decompressed. Subjective Subjective Interval history since last seen: Ritesh reports to be doing well. He does have some mild increase in pain about the ankle but he feels that the pressure that was over the ankle is much better. He has been moving his thumb and has been able to put some weight on it. He denies any fevers or chills. No issues with the wound itself overnight reported by nursing.. Exam Narrative Exam Narrative: Resting comfortably in the bed eating breakfast. Evaluation of the left leg shows an intact dressing. No significant drainage. He is able demonstrate active dorsiflexion and plantarflexion of the ankle. He also has intact extension flexion of the toes. No change in the appearance of the leg from yesterday with significant rubor in the area but no expanding erythema. Objective Last Vital Signs Temp 36.7 C 09/12/20 23:33 Pulse 67 09/12/20 23:33 Resp 18 09/12/20 23:33 BP 124/68 09/12/20 23:33 Pulse Ox 97 09/12/20 23:33
[2020-09-12] MEDS: Zolpidem 6.25 MG TABCR PO (22:21)
[2020-09-12 23:33] VITALS: BP 124/68; PULSE 67; RESP 18; TEMP 36.7; O2SAT 97
[2020-09-13] MEDS: MEROPENEM 1 GM in Normal Saline 100 ML IVPB ×3 (06:24→21:34)
[2020-09-13] MEDS: Normal Saline 500 ML 30 ML IV (06:25)
[2020-09-13] MEDS: oxyCODONE 15 MG TAB PO ×4 (06:33→20:46)
[2020-09-13 07:05] LABS: Absolute Basophil Count 0.07 10^3/uL (0.0-0.2); Absolute Eosinophil Count 0.38 10^3/uL (0.0-0.7); Absolute Lymphocyte Count 2.72 10^3/uL (1.2-3.4); Absolute Monocyte Count 0.61 10^3/uL (0.1-0.8); Absolute Neutrophil Count 4.57 10^3/uL (1.2-6.7); Basophils % 0.8; Eosinophils % 4.4; HCT 40.4 % (40.0-50.0); HGB 12.9 g/dL (13.5-17.5); Immature Grans % 2.3; Lymphocytes % 31.8; MCH 28.2 pg (27.0-33.0); MCHC 31.9 % (32.0-36.0); MCV 88.2 fL (80-95); MPV 9.8 fL (8.0-11.0); Monocytes % 7.1; Neutrophils % 53.6; Nucleated RBC 0 %; Platelet Count 381 10^3/uL (130-400); RBC 4.58 10^6/uL (4.36-5.78); RDW 13.1 % (11.8-14.1); RDW-SD 41.9 fL; WBC 8.55 10^3/uL (4.4-10.8)
[2020-09-13 07:13] LABS: BUN 12 mg/dL (7-18); CREATININE 0.9 mg/dL (0.70-1.30); Calcium 9.3 mg/dL (8.5-10.1); Chloride 103 mmol/L (98-107); Glucose 82 mg/dL (74-106); Potassium 4.4 mmol/L (3.5-5.1); Sodium 141 mmol/L (136-145)
[2020-09-13] MEDS: Nicotine 21 MG/24 HR PATCH TD (07:34)
[2020-09-13] MEDS: Normal Saline Flush 10 ML SYR 20 ML IVP ×2 (07:34→20:47)
[2020-09-13 07:40] VITALS: BP 138/71; PULSE 65; RESP 18; TEMP 36.6; O2SAT 99
[2020-09-13 07:43] LABS: C-Reactive Protein 1.68 mg/dL (0.0-0.3)
[2020-09-13] MEDS: Methadone Liquid 10 MG/ML 135 MG PO (07:51)
--- NOTE | 2020-09-13 10:49 | W.PM.PROGNOT ---
Date of Service Date of service: 09/13/20 Time of Service: 10:50 Assessment and Plan Assessment and plan (1) Cellulitis of left leg: Start date: 09/13/20 Start time: 10:53 Status: Acute Assessment and plan: POD 2. I/D with wash out with fasciotomy. Doing well, little pain swelling almost gone close to baseline. [place] to be removed to day. Awaiting sensitivities from wound cultures. Continue meropenem day 5 meropenem .continue roxicodone with tylenol for pain (2) Opioid dependence: Start date: 09/13/20 Start time: 10:57 Status: Chronic Assessment and plan: Methadone verified he takes 135 mg daily ordered and will continue (3) IVDU (intravenous drug user): Start date: 09/13/20 Start time: 10:57 Status: Chronic Assessment and plan: He states he has never gone through withdrawal for opioids continue methadone as above No signs or symptoms of w/d Encourage ambulation (4) Polysubstance abuse: Start date: 09/13/20 Start time: 10:57 Status: Chronic Assessment and plan: As above Provide nicotrol for nicotine dependence. will add nicotine patch (5) DVT prophylaxis: Start date: 09/13/20 Start time: 10:57 Status: Acute Assessment and plan: Sc lovenox (6) Discharge planning issues: Start date: 09/13/20 Start time: 10:57 Status: Acute Assessment and plan: Full code above case discussed with Dr. George Subjective Subjective Patient reports: no new complaints and feels better Interval history since last seen: ankle improving. swelling is down almost back to normal. erythema markedly improved. States pain improving. Denies CP, SOB, N/V/D Exam Narrative Exam Narrative: General: Pleasant middle-aged male, cooperative, calm, in no distress. Neurological: A&Ox3, no focal deficits Psychiatric: Appropriate speech pattern/content Skin: Left ankle improved, ankle now more pink, nilda drain in place. swelling down almost to normal HEENT: Atraumatic, normocephalic, EOMI, MMM, clear oropharynx, no submandibular or cervical lymphadenopathy, no goiter or JVD Cardiovascular: RRR, no murmurs Lungs: respirations even and unlabored Gastrointestinal: soft, nontender, nondistended, BS x 4 Objective Last Vital Signs Temp 36.6 C 04/25/21 07:40 Pulse 65 09/13/20 07:40 Resp 18 09/13/20 07:40 BP 138/71 09/13/20 07:40 Pulse Ox 99 09/13/20 07:40 Laboratory Results - last 24 hr 09/13/20 09/13/20 06:15 06:15 WBC 8.55 RBC 4.58 Hgb 12.9 L Hct 40.4 MCV 88.2 MCH 28.2 MCHC 31.9 L RDW 13.1 Plt Count 381 MPV 9.8 Immature Gran % 2.3 Neutrophils % 53.6 Lymphocytes % 31.8 Monocytes % 7.1 Eosinophils % 4.4 Basophils % 0.8 Nucleated RBC % 0 Absolute Neutrophils 4.57 Absolute Lymphocytes 2.72 Absolute Monocytes 0.61 Absolute Eosinophils 0.38 Absolute Basophils 0.07 Sodium 141 Potassium 4.4 Chloride 103 Carbon Dioxide 32.0 Anion Gap 6.0 BUN 12 Creatinine 0.9 Estimated GFR/1.73 m2 >= 60.00 Glucose 82 Calcium 9.3 C-Reactive Protein 1.68 H
[2020-09-13] MEDS: Acetaminophen 325 MG TAB 650 MG PO ×2 (11:04→15:22)
--- NOTE | 2020-09-13 13:31 | CMPROGNOTE_ITS ---
- If Service Date Differs Date of service: 09/13/20 Time of Service: 13:31 Care Management Progress Note S/O: Carl remains at [facility], being treated with antibiotics for sepsis due to LLE cellulitis. Per report, his drain was removed today. The provider continues to wait for cultures in order to determine ABX course. His door was closed most of the day, CM did not disturb as there is no change in plan. CM will continue to follow. A: Carl is a 40 year old male admitted to [facility] 09/05/20 for Sepsis due to LLE cellulitis in setting of IVD use. P: Ritesh will likely be discharged home with no new services, although OP IV antibiotic therapy may be recommended.. He will need a last dose letter for BAART resumption. Ritesh will follow up with his PCP and plan of care and transport with family. CM will continue to support Ritesh and his discharge planning needs.
[2020-09-13 15:13] VITALS: BP 144/82; PULSE 72; RESP 18; TEMP 37.2; O2SAT 97
--- NOTE | 2020-09-13 15:14 | W.PM.PROGNOT ---
Date of Service Date of service: 09/13/20 Time of Service: 15:14 Assessment and Plan Assessment and plan (1) Abscess of left lower extremity excluding foot: Status: Acute Assessment and plan: POD#2 s/p incision and drainage of abscess, washout, and limited fasciotomy. Pt is doing well. Drain was removed. --Continue local wound care with dressing changes daily/prn when saturated--4x4 gauze with paper tape --OOB and ambulate --pain control --Staph aureus, susceptibility pending on aerobic culture --anaerobic culture, no growth --continue antibiotics Subjective Subjective Patient reports: no new complaints, feels better, pain is less, tolerating a regular diet, voiding w/o difficulty and no bowel movement Interval history since last seen: The patient is feeling well today. He has been ambulating in the hallways with less pain and difficulty. He is tolerating a diet, pain is controlled, and his loose stools have decreased. Exam HENMN Head: normocephalic Resp Effort & Inspection: normal respiratory effort, able to speak in complete sentences and not labored GI Inspection: non-distended Palpation: soft Extrem Other: Left lower extremity: dressing was taken down; decreased erythema; small amount of old blood expressed from the wound; the [place] drain was removed; increased active dorsiflexion and extension; minimal maria [place] carmen-incisional swelling present but overall decreased Psych Appearance: grossly normal Mental Status: mental status grossly normal Speech and Movement: speech and movement normal Affect: normal affect Attitude: cooperative Thought Process: normal Thought Content: normal Insight: insight good Judgment: judgment good Objective Last Vital Signs Temp 97.9 F 09/13/20 07:40 Pulse 65 09/13/20 07:40 Resp 18 09/13/20 07:40 BP 138/71 09/13/20 07:40 Pulse Ox 99 09/13/20 07:40 Laboratory Results - last 24 hr 09/13/20 09/13/20 06:15 06:15 WBC 8.55 RBC 4.58 Hgb 12.9 L Hct 40.4 MCV 88.2 MCH 28.2 MCHC 31.9 L RDW 13.1 Plt Count 381 MPV 9.8 Immature Gran % 2.3 Neutrophils % 53.6 Lymphocytes % 31.8 Monocytes % 7.1 Eosinophils % 4.4 Basophils % 0.8 Nucleated RBC % 0 Absolute Neutrophils 4.57 Absolute Lymphocytes 2.72 Absolute Monocytes 0.61 Absolute Eosinophils 0.38 Absolute Basophils 0.07 Sodium 141 Potassium 4.4 Chloride 103 Carbon Dioxide 32.0 Anion Gap 6.0 BUN 12 Creatinine 0.9 Estimated GFR/1.73 m2 >= 60.00 Glucose 82 Calcium 9.3 C-Reactive Protein 1.68 H
[2020-09-13] MEDS: Enoxaparin 40 MG/0.4 ML SYR SC (20:47)
[2020-09-13] MEDS: Zolpidem 6.25 MG TABCR PO (22:09)
[2020-09-13 23:31] VITALS: BP 137/91; PULSE 77; RESP 19; TEMP 36.4; O2SAT 97
[2020-09-14] MEDS: Normal Saline Flush 10 ML SYR IVP ×2 (05:13→05:17)
[2020-09-14] MEDS: MEROPENEM 1 GM in Normal Saline 100 ML IVPB (05:13)
[2020-09-14 06:56] LABS: Abs Immature Grans 0.07 10^3/uL (0.0-0.06); Absolute Basophil Count 0.05 10^3/uL (0.0-0.2); Absolute Lymphocyte Count 2.54 10^3/uL (1.2-3.4); Absolute Neutrophil Count 4.27 10^3/uL (1.2-6.7); Basophils % 0.6; Eosinophils % 3.8; HCT 41.1 % (40.0-50.0); HGB 12.9 g/dL (13.5-17.5); Immature Grans % 0.9; Lymphocytes % 32.4; MCH 27.8 pg (27.0-33.0); MCHC 31.4 % (32.0-36.0); MCV 88.6 fL (80-95); MPV 9.7 fL (8.0-11.0); Monocytes % 7.7; Neutrophils % 54.6; Nucleated RBC 0 %; Platelet Count 381 10^3/uL (130-400); RBC 4.64 10^6/uL (4.36-5.78); RDW 12.7 % (11.8-14.1); RDW-SD 41.6 fL; WBC 7.83 10^3/uL (4.4-10.8)
[2020-09-14 07:06] VITALS: BP 100/58; PULSE 50; RESP 16; TEMP 36.4; O2SAT 100
[2020-09-14 07:07] LABS: Anion Gap 5.9 mmol/L (3-11); BUN 14 mg/dL (7-18); CO2 33.1 mmol/L (21.0-32.0); CREATININE 0.9 mg/dL (0.70-1.30); Calcium 9.7 mg/dL (8.5-10.1); Chloride 102 mmol/L (98-107); Glucose 77 mg/dL (74-106); Potassium 4.5 mmol/L (3.5-5.1); Sodium 141 mmol/L (136-145)
[2020-09-14] MEDS: Nicotine 21 MG/24 HR PATCH TD (08:35)
[2020-09-14] MEDS: Methadone Liquid 10 MG/ML 135 MG PO (08:37)
[2020-09-14] MEDS: Normal Saline Flush 10 ML SYR 20 ML IVP (08:37)
[2020-09-14] MEDS: oxyCODONE 15 MG TAB PO (08:46)
[2020-09-14 09:06] VITALS: BP 139/80
--- NOTE | 2020-09-14 10:18 | W.PM.PROGNOT ---
Date of Service Date of service: 09/14/20 Time of Service: 10:18 Assessment and Plan Assessment and plan (1) Abscess of left lower extremity excluding foot: Status: Acute Assessment and plan: POD#3 s/p incision and drainage of abscess, washout, and limited fasciotomy. Pt is doing well. Drain was removed. --Continue local wound care with dressing changes daily/prn when saturated--4x4 gauze with paper tape --OOB and ambulate --pain control --MSSA on culture --anaerobic culture, no growth --I believe he is stable to switch to oral antibiotics --will sign off --The patient should follow up in surgery clinic September 21- for suture removal --discharge per Hospitalist service Subjective Subjective Patient reports: no new complaints, feels better, tolerating a regular diet, flatus and bowel movement; denies nausea and vomiting Interval history since last seen: The patient is feeling well. He has been ambulating with minimal pain. He is now having solid bowel movements. Exam Const General: cooperative, healthy appearing, comfortable and no acute distress Neck Neck: supple Resp Effort & Inspection: normal respiratory effort, able to speak in complete sentences, no pursed lip breathing, no respiratory distress and no retractions GI Inspection: normal to inspection and non-distended Palpation: soft, no guarding, not rigid and nontender Other: no suprapubic tenderness Neuro General: patient alert, patient awake, patient oriented x3 and moves all extremities Cognition: normal cognition Speech: speech normal Extrem Other: Dressing changed, first time since I removed the drain yesterday, and there was scant drainage. Minimal old blood expressed from wound. Significant improvement in erythema. Minmal maria del carmen-incisional swelling. Sutures intact. Objective Last Vital Signs Temp 97.5 F L 09/14/20 07:06 Pulse 50 L 09/14/20 07:06 Resp 16 09/14/20 07:06 BP 139/80 09/14/20 09:06 Pulse Ox 100 09/14/20 07:06 Laboratory Results - last 24 hr 09/14/20 09/14/20 06:05 06:05 WBC 7.83 RBC 4.64 Hgb 12.9 L Hct 41.1 MCV 88.6 MCH 27.8 MCHC 31.4 L RDW 12.7 Plt Count 381 MPV 9.7 Immature Gran % 0.9 Neutrophils % 54.6 Lymphocytes % 32.4 Monocytes % 7.7 Eosinophils % 3.8 Basophils % 0.6 Nucleated RBC % 0 Absolute Neutrophils 4.27 Absolute Lymphocytes 2.54 Absolute Monocytes 0.60 Absolute Eosinophils 0.30 Absolute Basophils 0.05 Sodium 141 Potassium 4.5 Chloride 102 Carbon Dioxide 33.1 H Anion Gap 5.9 BUN 14 Creatinine 0.9 Estimated GFR/1.73 m2 >= 60.00 Glucose 77 Calcium 9.7
--- NOTE | 2020-09-14 11:09 | DSE_ITS ---
Date of service: 09/14/20 Time of Service: 11:09 DS: Diagnosis Discharge Diagnosis (1) Abscess of left lower extremity excluding foot: Status: Acute Discharge Plan Disposition Patient Disposition: HOME Condition: Stable Discharge Details Reason For Visit: SEPSIS DUE TO LLE CELLULITIS IN SETTING OF IVD USE Admit Date/Time: 09/05/20 19:11 Admit Provider: Amanda Cerda Attending Provider: Amanda Cerda Primary Care Provider: Zuly Mckinnon Hospital Course Hospital Course: This is a 40 year old male with history polysubstance abuse who developed left lower extremity cellulitis at an injection site. he was admitted on Vancomycin and ceftriaxone and initially started improving but day 3 started having increased redness and swelling. His antibiotics were broadened to meropenem but he continued to worsen. An MRI of the left lower extremity was performed on 09/10, which revealed a fluid collection in the area. General surgery and orthopedic surgery were consulted and he went to OR for a I&D with washout. He grew MSSA and is now improving post I&D. He is to be discharged on cephalexin to complete 2 more weeks. He has sutures at the incision site that should be removed between September 21-2020. He is being discharged home with no services. discharge discussed with Dr Cerda Home Meds and New Rx's Prescriptions: New cephalexin 500 mg tablet 500 mg PO QID Qty: 60 RF: 0 Continued omeprazole 20 mg capsule,delayed release(DR/EC) 20 mg PO DAILY PRN (Reason: Heartburn) RF: 0 methadone 10 MG/ML concentrate 135 mg PO DAILY RF: 0 Discharge Instructions Instructions: Abscess Follow-up (ED) Additional Instructions: May shower keep wound clean and dry apply dry dressing daily, after showers and as needed elevate foot during the day to reduce swelling. report fever, increase pain and swelling or drainage return to surgeon office or ED for suture removal between September 21-2020 Referrals: Arcenio Thomason MD [MD CONSULTING PHYSICIAN] - (between september 21- for suture removal) Zuly Mckinnon MD [Primary Care Provider] - 09/16/20 11:10 am Activity:: Activity as Tolerated Equipment/Supplies:: No Equipment Needed Diet:: As Tolerated Discharge Orders Discharge Orders: Discharge Order (Routine); Ordered 04/26/21 Ordered By: Marj Todd DS: Summary Time Spent with Patient providing and/or coordinating discharge services: Greater than 30 minutes Status at Discharge Functional status at discharge: independent ambulation Overall status at discharge: patient is progressing back to baseline Mental Status: mental status grossly normal Speech and Movement: speech and movement normal Mood: congruent mood Affect: normal affect Exam Narrative Exam Narrative: General: Pleasant middle-aged male, cooperative, calm, in no distress. Neurological: A&Ox3, no focal deficits Psychiatric: Appropriate speech pattern/content Skin: L ankle trace erythema and swelling significantly improved. surgical wound is healing, not approximated distally at old drain site, sutures intact, no drainage. HEENT: Atraumatic, normocephalic, EOMI, MMM, clear oropharynx, no submandibular or cervical lymphadenopathy, no goiter or JVD Cardiovascular: RRR, no murmurs Lungs: respirations even and unlabored Gastrointestinal: soft, nontender, nondistended, BS x 4 Psych Mental Status: mental status grossly normal Speech and Movement: speech and movement normal Mood: congruent mood Affect: normal affect DS: Data Vitals/I&O Vitals and I&O: Vital Signs Temperature 36.4 C L 09/14/20 07:06 Temperature Source Tympanic 09/14/20 07:06 Pulse 50 L 09/14/20 07:06 Pulse Rhythm Regular 09/14/20 09:05 Respiratory Rate 16 09/14/20 07:06 Respiratory Effort Non-Labored 09/14/20 00:03 Respiratory Depth Normal 09/14/20 09:05 Respiratory Pattern Normal 09/14/20 09:05 Blood Pressure 139/80 09/14/20 09:06 Pulse Oximetry 100 09/14/20 07:06 Respiratory End-tidal CO2 44 09/11/20 14:40 Oxygen Delivery Method Mechanical Ventilator 09/14/20 09:06 Oxygen Flow Rate 0 09/14/20 09:06 Pain Level 5 09/14/20 08:46 Intake & Output 09/13/20 09/13/20 09/14/20 11:59 23:59 11:59 Intake Total 600 / 1310 710 / 1310 100 / 100 Output Total 1050 / 1050 Balance -450 / 260 710 / 260 100 / 100 Intake: IV 120 / 340 220 / 340 100 / 100 Oral 480 / 970 490 / 970 Output: Urine 1050 / 1050 Other: Urine Color Yellow Urine Appearance Clear Clear Clear Urine Odor None Comment no urine at this time pt voiding independently independently use the toilet Voiding Methods Urinal Toilet Toilet Data Completed and Pending Labs on day of discharge: Labs from last 24 hours 09/14/20 09/14/20 06:05 06:05 WBC 7.83 RBC 4.64 Hgb 12.9 L Hct 41.1 MCV 88.6 MCH 27.8 MCHC 31.4 L RDW 12.7 Plt Count 381 MPV 9.7 Immature Gran % 0.9 Neutrophils % 54.6 Lymphocytes % 32.4 Monocytes % 7.7 Eosinophils % 3.8 Basophils % 0.6 Nucleated RBC % 0 Absolute Neutrophils 4.27 Absolute Lymphocytes 2.54 Absolute Monocytes 0.60 Absolute Eosinophils 0.30 Absolute Basophils 0.05 Sodium 141 Potassium 4.5 Chloride 102 Carbon Dioxide 33.1 H Anion Gap 5.9 BUN 14 Creatinine 0.9 Estimated GFR/1.73 m2 >= 60.00 Glucose 77 Calcium 9.7 Preliminary micro results at discharge 09/11/20 14:14 Anaerobic Culture - Preliminary Leg - Left PFSH Medical History ADHD (attention deficit hyperactivity disorder) Depression GERD (gastroesophageal reflux disease) HPV (human papilloma virus) infection Mood disorder Opioid dependence Tobacco abuse Surgical History No pertinent past surgical history Family History Mother Colon cancer Social History Smoking/Tobacco Use Status: Current every day Tobacco Type: cigarettes Smoking packs per day: 1 Smoking cigarettes per day: 20.0 Years smoked: 25 Smoking pack- years: 25.00 Counseling given: provider counseling, support medications and counseling >3 minutes Smoking risk assessment performed?: Yes Alcohol Intake: current Alcohol type: other Drug use: Daily Substance use type: marijuana, crack/cocaine, amphetamines, tranquilizers, IV drugs and prescription drug Counseling given: Yes Counseling provided: provider counseling Do you feel safe in your relationship?: Yes
[2020-09-14] MEDS: Cephalexin 500 MG CAP PO (11:26)
[2020-09-14] MEDS: Bacitracin 1 PACKET (11:26)
--- NOTE | 2020-09-14 13:06 | PDOC.CMDIS ---
- If Service Date Differs Date of service: 09/14/20 Time of Service: 13:06 LACE Index Scoring Tool - Questions: Length of Stay (in days): 7 - 13 Acuity (Admit via E.D.?): Yes E.D. Visits: 1 - Answers: Total Score: 9 Risk of Readmission: Low Risk Care Management Discharge Reason for Hospitalization: Cellulitis of left leg Discharge Plan: Ritesh will be discharged home with no new services. He will follow up with his PCP, surgeon and discharge plan of care and transport with a friend. Patient/Family Education Needs: Review of discharge instructions, medications, follow up plan, limitations, Ask Me Three.
== END 2020-09-14 12:05 | disposition home or self-care (01) | DRG 580 ==
LOC: ER 19:20 → MS 20:01
PROVIDERS: Internal Medicine; Nurse Practitioner Acute Care; Nurse Practitioner Family; Registered Nurse Emergency; Surgery; Admitting Provider Internal Medicine; Emergency Provider Physician Assistant; PCP Family Medicine; Visit Provider Internal Medicine
PROC: 0J9R0ZZ Drainage of Left Foot Subcutaneous Tissue and Fascia, Open Approach (ICD-10-PCS; CPT 10060; principal; 2020-09-11 14:30)
DX: L03.116 Cellulitis of left lower limb (principal); F11.20 Opioid dependence, uncomplicated; L02.416 Cutaneous abscess of left lower limb; W18.09XA Striking against other object with subsequent fall, initial encounter; F41.9 Anxiety disorder, unspecified; F32.9 Major depressive disorder, single episode, unspecified; Z91.14 Patient's other noncompliance with medication regimen; F90.9 Attention-deficit hyperactivity disorder, unspecified type; F17.210 Nicotine dependence, cigarettes, uncomplicated; F39 Unspecified mood [affective] disorder; K21.9 Gastro-esophageal reflux disease without esophagitis; E87.6 Hypokalemia; F19.10 Other psychoactive substance abuse, uncomplicated; F14.10 Cocaine abuse, uncomplicated; Z20.822 Contact with and (suspected) exposure to COVID-19; B95.61 Methicillin susceptible Staphylococcus aureus infection as the cause of diseases classified elsewhere
CPT/HCPCS: 10060; 36415; 36573; 71045; 80048; 80053; 80307; 82550; 84145; 85027; 86704; 86706; 86803; 87040; 87077; 87340; 87389; 87522; 87635; 96361; 96365; 99223; 99232; 99233; 99252; 99253; 99285; J1650; 73590; 73610; 73718; 80202; 83605; 83735; 85025; 86140; 87070; 87075; 87186; 87205; 99239; 99284; J1885; J2250; J3010